=== PATIENT | female | born 1980 | race Caucasian/White ===

== ENCOUNTER 2017-08-31 11:30 | Emergency (ER) | payer OTHER ==
--- NOTE | 2017-08-31 14:53 | EKG ---
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
== END 2017-08-31 16:44 | disposition home or self-care (01) ==
LOC: ER 11:30
DX: S60.212A Contusion of left wrist, initial encounter (principal); V59.9XXA Occupant (driver) (passenger) of pick-up truck or van injured in unspecified traffic accident, initial encounter
CPT/HCPCS: 71046; 93005; 99284

== ENCOUNTER 2017-11-23 02:22 | Emergency (ER) | payer OTHER ==
[2017-11-23] MEDS ORDERED: LIDOCAINE VISCOUS 2% SOLN 15 ML UDC ONE (03:07)
[2017-11-23] MEDS ORDERED: MAGNE/ALUM HYDROXD 30 ML UCUP ONE (03:07)
[2017-11-23 03:17] LABS: Urine Blood NEGATIVE (NEG); Urine Glucose NEGATIVE (NEG); Urine Protein NEGATIVE (NEG); Urine Specific Gravity <1.005 (1.005-1.030)
[2017-11-23 03:18] LABS: Absolute Monocytes 0.7 K/uL (0.1-1.3); Absolute Neutrophil 5.7 K/uL (1.8-8.0); Basophils % 0.7 % (0-1.3); Eosinophils % 2.1 % (0-4.4); Hematocrit 42.8 % (36.0-45.0); Lymphocytes % 23.5 % (15.3-44.8); MCH 31.2 pg (27.0-35.0); MCV 89.4 fL (80-100); MPV 9.8 fL (7.6-11.3); Monocytes % 7.9 % (3.3-12.3); RBC Red Blood Cell Count 4.79 M/uL (3.86-4.86)
[2017-11-23 03:28] LABS: Protime INR 0.99
[2017-11-23 03:42] LABS: ALT/SGPT 37 U/L (12-78); AST/SGOT 23 U/L (15-37); Albumin 3.5 g/dL (3.4-5.0); Alkaline Phosphatase 60 U/L (45-117); BUN Blood Urea Nitrogen 11 mg/dL (7-18); Bicarbonate 24 mmol/L (21-32); Bilirubin Direct < 0.1 mg/dL (0-0.2); Bilirubin Total 0.3 mg/dL (0.2-1.0); CKMB Creatine Kinase MB < 1.0 ng/mL (0.3-3.6); Creatine Phosphokinase 84 U/L (26-192); Glucose Level 101 mg/dL (74-106); NT PRO-BNP 18 pg/mL (<125); Potassium 3.4 mmol/L (3.5-5.1); Protein, Total 7.2 g/dL (6.4-8.2); Sodium Level 142 mmol/L (136-145)
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
--- NOTE | 2017-11-23 03:55 | EDPHYS ---
Physician Documentation [facility] Name: Kavita Jeff Age: 37 yrs Sex: Female : 1980 Arrival Date: 11/23/2017 Time: 02:23 Bed 7 Private MD: Anatoliy Muniz H ED Physician Jamal Kingsley HPI: 11/23 03:49 This 37 yrs old Female presents to ER via Ambulatory with complaints of R Arm ps1 Pain, Heartburn, Abdominal Pain. 03:49 The patient or guardian reports chest pain that is located primarily in the not pain ps1 but discomfort with taking a deep breath, additionally feels like she has heartburn. Onset was early this morning. Did not eat dinner. No leg swelling. On control. No remitting or exacerbating factors. . 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 - Social history:: Smoking status: Patient/guardian denies using tobacco. - Ebola Screening: : No symptoms or risks identified at this time. ROS: 03:49 Constitutional: Negative for fever, chills, and weight loss, Eyes: Negative for injury, ps1 pain, redness, and discharge, Neck: Negative for injury, pain, and swelling, Cardiovascular: Negative for chest pain, palpitations, and edema, Back: Negative for injury and pain, MS/Extremity: Negative for injury and deformity, Skin: Negative for injury, rash, and discoloration, Neuro: Negative for headache, weakness, numbness, tingling, and seizure. 03:49 Respiratory: Positive for discomfort with deep inspiration. 03:49 Abdomen/GI: Positive for dyspepsia. Exam: 03:49 Constitutional: This is a well developed, well nourished patient who is awake, alert, ps1 and in no acute distress. Head/Face: Normocephalic, atraumatic. Eyes: Pupils equal round and reactive to light, extra-ocular motions intact. Lids and lashes normal. Conjunctiva and sclera are non-icteric and not injected. Chest/axilla: Normal chest wall appearance and motion. Nontender with no deformity. No lesions are appreciated. Cardiovascular: Regular rate and rhythm. No gallops, murmurs, or rubs. Normal PMI, no JVD. No pulse deficits. Respiratory: Lungs have equal breath sounds bilaterally, clear to auscultation and percussion. No rales, rhonchi or wheezes noted. No increased work of breathing, no retractions or nasal flaring. Abdomen/GI: Soft, non-tender, with normal bowel sounds. No distension or tympany. No guarding or rebound. No evidence of tenderness throughout. Skin: Warm, dry with normal turgor. Normal color with no rashes, no lesions, and no evidence of cellulitis. MS/ Extremity: Pulses equal, no cyanosis. Neurovascular intact. Full, normal range of motion. Neuro: Awake and alert, GCS 15, oriented to person, place, time, and situation. Cranial nerves II-XII grossly intact. Sensory grossly intact. Vital Signs: 02:51 BP 156 / 125; Pulse 91; Resp 18; Temp 98.6; Pulse Ox 100% on R/A; Weight 106.59 kg; mg2 Height 5 ft. 6 in. (167.64 cm); Pain 0/10; 03:30 BP 117 / 70; Pulse 90; Resp 18; Pulse Ox 98% on R/A; Pain 0/10; mg2 02:51 Body Mass Index 37.93 (106.59 kg, 167.64 cm) mg2 MDM: 03:11 Patient medically screened. ps1 03:49 HEART Score: History: Slightly Suspicious (0), ECG: Normal (0), Age: < or = 45 years ps1 (0), Risk Factors: No Risk Factors Known (0), Troponin: < or = 1 x Normal Limit (0). The patient's deep vein thrombosis risk score was calculated as follows: Total Score: 0. This patient was found to be at low risk for a deep vein thrombosis by using the Well's assessment criteria. The patient's pulmonary embolism risk score was calculated as follows: Total Score: 0-2 points. This patient was found to be at low risk for a pulmonary embolism by using the Well's assessment criteria. Data reviewed: vital signs, nurses notes, lab test result(s), EKG, radiologic studies, plain films, and as a result, I will discharge patient. 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 Special discussion: Based on the patient's history, exam, and Dx evaluation, there is no indication for emergent intervention or inpatient Tx. It is understood by the patient/guardian that if the Sx's persist or worsen they need to return immediately for re-evaluation. 11/23 02:56 Order name: CBC with Diff; Complete Time: 03:39 mg2 11/23 02:56 Order name: Ckmb; Complete Time: 03:43 mg2 11/23 02:56 Order name: CPK; Complete Time: 03:43 mg2 11/23 02:56 Order name: LFT's; Complete Time: 03:43 mg2 11/23 02:56 Order name: Magnesium; Complete Time: 03:43 mg2 11/23 02:56 Order name: NT PRO-BNP; Complete Time: 03:43 mg2 11/23 02:56 Order name: PT-INR; Complete Time: 03:39 mg2 11/23 02:56 Order name: Ptt, Activated; Complete Time: 03:39 mg2 11/23 02:56 Order name: Troponin (emerg Dept Use Only); Complete Time: 03:39 mg2 11/23 02:56 Order name: EKG; Complete Time: 02:57 mg2 11/23 02:56 Order name: Cardiac monitoring; Complete Time: 03:01 mg2 11/23 02:56 Order name: EKG - Nurse/Tech; Complete Time: 03:01 mg2 11/23 02:56 Order name: IV Saline Lock; Complete Time: 03:01 mg2 11/23 02:56 Order name: Labs collected and sent; Complete Time: 03:01 mg2 11/23 02:56 Order name: O2 Per Protocol; Complete Time: 03:01 mg2 11/23 02:56 Order name: O2 Sat Monitoring; Complete Time: 03:01 mg2 11/23 02:56 Order name: Urine Dipstick-Ancillary (obtain specimen); Complete Time: 03:55 mg2 11/23 02:57 Order name: XRAY Chest (1 view) [facility] 11/23 03:10 Order name: Comprehensive Metabolic Panel; Complete Time: 03:43 EDMS 11/23 03:12 Order name: Urine Dipstick--Ancillary (enter results); Complete Time: 03:25 ms 11/23 03:15 Order name: D-Dimer; Complete Time: 03:39 EDMS 11/23 02:57 Order name: Cardiac monitoring; Complete Time: 02:59 ps1 11/23 02:57 Order name: EKG - Nurse/Tech; Complete Time: 02:59 ps1 11/23 02:57 Order name: IV Saline Lock; Complete Time: 02:59 ps1 11/23 02:57 Order name: Labs collected and sent; Complete Time: 02:59 ps1 11/23 02:57 Order name: O2 Per Protocol; Complete Time: 02:59 ps1 11/23 02:57 Order name: O2 Sat Monitoring; Complete Time: 03:00 ps1 11/23 02:57 Order name: Urine Dipstick-Ancillary (obtain specimen); Complete Time: 03:55 ps1 Administered Medications: 03:08 Drug: GI Cocktail without - (Maalox Suspension 30 ml, Lidocaine Liquid 2 % 15 mg2 ml) Route: PO; 03:55 Follow up: Response: No adverse reaction mg2 04:21 Follow up: Response: No adverse reaction mg2 Disposition: 11/23/17 03:55 Discharged to Home. Impression: Heartburn, Other chest pain. - Condition is Stable. - Discharge Instructions: Nonspecific Chest Pain. - Medication Reconciliation Form, Thank You Letter, Antibiotic Education, Prescription Opioid Use form. - Follow up: Anatoliy Muniz DO; When: As needed; Reason: Recheck today's complaints, Continuance of care, Re-evaluation by your physician. Follow up: Emergency Department; When: As needed; Reason: Fever > 102 F, Trouble breathing, Worsening of condition. - Problem is new. - Symptoms have improved. Signatures: Dispatcher [employer] EDMS Jamal Kingsley MD MD ps1 Robert Mohan RN RN mg2 Corrections: (The following items were deleted from the chart) 03:00 02:57 Chest Single View+RAD.RAD.BRZ ordered. EDMS EDMS 03:09 02:58 MAGNESIUM+C.LAB.BRZ ordered. EDMS EDMS 03:09 02:58 COMPREHENSIVE METABOLIC PANEL+C.LAB.BRZ ordered. EDMS EDMS 03:10 02:57 BASIC METABOLIC PANEL+C.LAB.BRZ ordered. EDMS EDMS 03:15 02:58 D-DIMER+COAG.LAB.BRZ ordered. EDMS EDMS 04:21 03:55 11/23/2017 03:55 Discharged to Home. Impression: Heartburn; Other chest pain. mg2 Condition is Stable. Forms are Medication Reconciliation Form, Thank You Letter, Antibiotic Education, Prescription Opioid Use. Follow up: Anatoliy Muniz; When: As needed; Reason: Recheck today's complaints, Continuance of care, Re-evaluation by your physician. Follow up: Emergency Department; When: As needed; Reason: Fever > 102 F, Trouble breathing, Worsening of condition. Problem is new. Symptoms have improved. ps1
--- NOTE | 2017-11-23 06:31 | EKG ---
Test Date: 2017-11-23 Test Time: 02:54:15 Pot Builder: REGINA MEASUREMENT RESULTS: Intervals: Rate: 74 CT: 140 QRSD: 96 QT: 384 QTc: 426 White: P: 60 CT: 140 QRS: 86 T: 36 INTERPRETIVE STATEMENTS: Normal sinus rhythm with sinus arrhythmia Normal ECG Compared to ECG 08/31/2017 11:57:18 No significant changes Electronically Signed On 11-23-17 06:30:15 CDT by Bryce Valentin
--- NOTE | 2017-11-23 08:51 | RAD REPORT ---
EXAM DESCRIPTION: RAD - Chest Single View - 11/23/2017 3:16 am CLINICAL HISTORY: CHEST PAIN Chest pain. COMPARISON: Chest Pa And Lat (2 Views) dated 08/31/2017; Chest Single View dated 06/18/2017 FINDINGS: Portable technique limits examination quality. The lungs are grossly clear. The heart is normal in size. No displaced fractures. IMPRESSION: No acute intrathoracic process suspected.
== END 2017-11-23 04:21 | disposition home or self-care (01) ==
LOC: ER 02:22
DX: R12 Heartburn (principal); R07.89 Other chest pain
CPT/HCPCS: 36415; 71045; 80053; 80076; 81003; 82550; 82553; 83735; 83880; 84484; 85025; 85379; 85610; 85730; 93005; 99283

== ENCOUNTER 2024-07-14 14:08 | Emergency (ER) | payer BC ==
--- OUTSIDE RECORDS SUMMARY | 2024-07-14 14:12 | XMS REPORT | Continuity of Care Document ---
Author Name Unknown Address [address] [facility] [address] [place] [address] [facility] Address [address] [facility] [address] [place] [address] Care Team Providers Care Ear Nose Throat Surgeon Name Role Phone Pcp, Patient Does Not Have A Primary Care Physic ej Francisco J Bartlett Attending Clinician Unavailable Candice Echavarria Attending Clinician Unavailabl karen BEATTY_Kem_Tay Attending Clinician Unavailab Drew Horta Attending Clinician Unavailable Kris Shields Attending Clinician Unavailable Valerie RN, Kalli Hanna Attending Clinician Unavailab Mcgrath, Ang Db Test Attending Clinician Unavailying e Julita Young Attending Clinician JULITA DEMPSEY Attending Clinician Unavailabl e Doctor Unassigned, [place] Attending Clinician U eris Wade, Shabnam Attending Clinician Unavailable Candice Echavarria Admitting Clinician Unavailying BEATTY_Kem_Tay Admitting Clinician Unavailab le KNOW, DOES_NOT Admitting Clinician Unavailable Drew Wade Admitting Clinician Unavailable FRANCISCO J BARTLETT Admitting Clinician Unavailable Physician, No Primary or Family Admitting Clinic ej Unavailable Payers Payer Name Policy Type Policy Number Effective Date Expirati on Date Source Blue Cross [place] of [place] 6 [id number] 2022 00:00:00 [facility] [place] [id number] 2022 00:00:00 Problems Condition Name Condition Details Condition Category Status Onset Date Resolution Date Last Treatment Date Treating Clinician Comments Source 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 Active 09-02 00:00: 00 [facility] S/P gastric sleeve procedure S/P gastric sleeve procedure Problem [facility] [id number] Thyroid nodule Problem [facility] [id number] 06 Reactive airway disease without complicati on, unspecifie d asthma severity, unspecifie d whether persistent Problem [facility] [id number] Allergic rhinitis, unspecifie d seasonalit y, unspecifie d trigger Problem [facility] [id number] MTHFR gene mutation Problem [facility] [id number] Eczema, unspecifie d type Problem [facility] [id number] Mixed hyperlipid emia Problem [facility] [id number] Body mass index [BMI] 38.0-38.9, adult Problem [facility] 3654954 Enlarged thyroid Problem [facility] [id number] Iron deficiency anemia, unspecifie d iron deficiency anemia type Problem [facility] [id number] Environmen kia allergies Problem [facility] 534291759 Lung nodule, solitary Problem [facility] [id number] Other obesity due to excess calories Problem [facility] 454738254 Gastro-eso phageal reflux disease without esophagiti s Problem [facility] 59953083 Vitamin D deficiency disease Problem [facility] Allergies, Adverse Reactions, Alerts Allergy Name Allergy Type Status Severity Reaction(s) Onset Date Inactive Date Treating Clinician Comments Source No Known Drug Intolera nces DA Active U NONE 2023-05 00:00: 00 [facility] No Known Allergie s DA Active U 05-29 00:00: 00 [facility] No Known Drug Intolera nces DA Active U NONE 01-07 00:00: 00 [facility] No Known Drug Intolera nces DA Active U 01-07 00:00: 00 [facility] NO KNOWN ALLERGIE S Drug Class Active [facility] Social History Social Habit Start Date Stop Date Quantity Comments Source History of Tobacco Use [facility] Sex Assigned At [facility] Exposure to SARS-CoV-2 (event) Yes [facility] Smoking Status Start Date Stop Date Source Never Smoker [facility] Unknown if ever smoked [facility] Medications Ordered Medication Name Filled Medication Name Start Date Stop Date Current Medication? Ordering Clinician Indication Dosage Frequency Signature (SIG) Comments Components Source Zepbound 2.5 MG/0.5ML Zepbound 2.5 MG/0.5ML 2- 00:00: 00 No .5{ml} Zepbound 2.5 MG/0.5ML Kenalog (Triamcinol one) Kenalog (Triamcinol one) 5- 00:00: 00 No 40mg [facility] Triamcinolo ne Acetonide 0.5 % Triamcinolo ne Acetonide 0.5 % 2020-05 0-12 00:00: 00 No 1{appli cation} BID Triamcinol one Acetonide 0.5 % Altavera (28) 0.15 mg-0.03 mg tablet TAKE ONE (1) TABLET(S) BY MOUTH ONCE A DAY CONTIUOUSLY AND SKIP PLACEBOS. Altavera (28) 0.15 mg-0.03 mg tablet TAKE ONE (1) TABLET(S) BY MOUTH ONCE A DAY CONTIUOUSLY AND SKIP PLACEBOS. No Altavera (28) 0.15 mg-0.03 mg tablet TAKE ONE (1) TABLET(S) BY MOUTH ONCE A DAY CONTIUOUSL Y AND SKIP PLACEBOS. [facility] amoxicillin 500 mg capsule TAKE ONE (1) CAPSULE(S) BY MOUTH THREE TIMES A DAY. amoxicillin 500 mg capsule TAKE ONE (1) CAPSULE(S) BY MOUTH THREE TIMES A DAY. No amoxicilli n 500 mg capsule TAKE ONE (1) CAPSULE(S) BY MOUTH THREE TIMES A DAY. [facility] amoxicillin 875 mg tablet TAKE ONE (1) TABLET(S) BY MOUTH EVERY TWELVE HOURS. amoxicillin 875 mg tablet TAKE ONE (1) TABLET(S) BY MOUTH EVERY TWELVE HOURS. No amoxicilli n 875 mg tablet TAKE ONE (1) TABLET(S) BY MOUTH EVERY TWELVE HOURS. [facility] amoxicillin 875 mg-potassiu m clavulanate 125 mg tablet TAKE ONE (1) TABLET(S) BY MOUTH TWICE A DAY. amoxicillin 875 mg-potassiu m clavulanate 125 mg tablet TAKE ONE (1) TABLET(S) BY MOUTH TWICE A DAY. No amoxicilli n 875 mg-potassi um clavulanat e 125 mg tablet TAKE ONE (1) TABLET(S) BY MOUTH TWICE A DAY. [facility] azelaic acid 15 % topical gel APPLY TO AFFECTED AREA TWICE A DAY. azelaic acid 15 % topical gel APPLY TO AFFECTED AREA TWICE A DAY. No azelaic acid 15 % topical gel APPLY TO AFFECTED AREA TWICE A DAY. [facility] azithromyci n 250 mg tablet TAKE 2 TABLETS BY MOUTH ON DAY 1, THEN 1 TABLET DAILY ON DAYS 2 TO 5. azithromyci n 250 mg tablet TAKE 2 TABLETS BY MOUTH ON DAY 1, THEN 1 TABLET DAILY ON DAYS 2 TO 5. No azithromyc in 250 mg tablet TAKE 2 TABLETS BY MOUTH ON DAY 1, THEN 1 TABLET DAILY ON DAYS 2 TO 5. [facility] dexamethaso ne 4 mg tablet TAKE TWO (2) TABLET(S) BY MOUTH ONCE ON DAYS 1 AND 2, THEN TAKE ONE (1) TABLET ONCE ON DAY 3. dexamethaso ne 4 mg tablet TAKE TWO (2) TABLET(S) BY MOUTH ONCE ON DAYS 1 AND 2, THEN TAKE ONE (1) TABLET ONCE ON DAY 3. No dexamethas one 4 mg tablet TAKE TWO (2) TABLET(S) BY MOUTH ONCE ON DAYS 1 AND 2, THEN TAKE ONE (1) TABLET ONCE ON DAY 3. [facility] fluconazole 150 mg tablet TAKE ONE (1) TABLET(S) BY MOUTH EVERY OTHER DAY. fluconazole 150 mg tablet TAKE ONE (1) TABLET(S) BY MOUTH EVERY OTHER DAY. No fluconazol e 150 mg tablet TAKE ONE (1) TABLET(S) BY MOUTH EVERY OTHER DAY. [facility] hydrocodone 7.5 mg-acetamin ophen 325 mg tablet TAKE ONE (1) TABLET(S) BY MOUTH FOUR TIMES A DAY NEEDED. hydrocodone 7.5 mg-acetamin ophen 325 mg tablet TAKE ONE (1) TABLET(S) BY MOUTH FOUR TIMES A DAY NEEDED. No hydrocodon e 7.5 mg-acetami nophen 325 mg tablet TAKE ONE (1) TABLET(S) BY MOUTH FOUR TIMES A DAY NEEDED. [facility] ibuprofen 800 mg tablet TAKE ONE (1) TABLET(S) BY MOUTH EVERY SIX HOURS WITH FOOD. ibuprofen 800 mg tablet TAKE ONE (1) TABLET(S) BY MOUTH EVERY SIX HOURS WITH FOOD. No ibuprofen 800 mg tablet TAKE ONE (1) TABLET(S) BY MOUTH EVERY SIX HOURS WITH FOOD. [facility] methylpredn isolone 4 mg tablets in a dose pack TAKE BY MOUTH DIRECTED. methylpredn isolone 4 mg tablets in a dose pack TAKE BY MOUTH DIRECTED. No methylpred nisolone 4 mg tablets in a dose pack TAKE BY MOUTH DIRECTED. [facility] rabeprazole 20 mg tablet,alok yed release TAKE ONE (1) TABLET(S) BY MOUTH ONCE A DAY. rabeprazole 20 mg tablet,alok yed release TAKE ONE (1) TABLET(S) BY MOUTH ONCE A DAY. No rabeprazol e 20 mg tablet,del ayed release TAKE ONE (1) TABLET(S) BY MOUTH ONCE A DAY. [facility] spironolact one 100 mg tablet TAKE ONE (1) TABLET(S) BY MOUTH DAILY. spironolact one 100 mg tablet TAKE ONE (1) TABLET(S) BY MOUTH DAILY. No spironolac tone 100 mg tablet TAKE ONE (1) TABLET(S) BY MOUTH DAILY. [facility] triamcinolo ne acetonide 0.5 % topical ointment APPLY TO AFFECTED AREA TWICE A DAY. triamcinolo ne acetonide 0.5 % topical ointment APPLY TO AFFECTED AREA TWICE A DAY. No triamcinol one acetonide 0.5 % topical ointment APPLY TO AFFECTED AREA TWICE A DAY. [facility] triazolam 0.25 mg tablet BRING TWO TABLETS TO DENTAL APPOINTMENT . triazolam 0.25 mg tablet BRING TWO TABLETS TO DENTAL APPOINTMENT . No triazolam 0.25 mg tablet BRING TWO TABLETS TO DENTAL APPOINTMEN T. [facility] Flonase Flonase No Flonase ZyrTEC Allergy 10 MG ZyrTEC Allergy 10 MG No 1{table t} QD ZyrTEC Allergy 10 MG RABEprazole Sodium 20 MG RABEprazole Sodium 20 MG No 1{table t} QD RABEprazol e Sodium 20 MG Soolantra 1 % Soolantra 1 % No 1{appli cation} QD Soolantra 1 % Immunizations Ordered Immunization Name Filled Immunization Name Date Status Comments Source Flucelvax (ccIIV4) - SDS - 0.5mL Flucelvax (ccIIV4) - SDS - 0.5mL 2022-06-09 11:23:00 [facility] Flucelvax - single dose syringe Flucelvax - single dose syringe 2022-06-09 11:23:00 [facility] Flucelvax (ccIIV4) - MDV - 0.5mL Flucelvax (ccIIV4) - MDV - 0.5mL 2021-06-05 11:10:00 [facility] Flucelvax - multidose vial Flucelvax - multidose vial 2021-06-05 11:10:00 Completed [facility] Flucelvax - multidose vial Flucelvax - multidose vial 2021-06-05 11:10:00 Completed [facility] Flucelvax - multidose vial Flucelvax - multidose vial 2021-06-05 11:10:00 Completed [facility] Boostrix (Tdap) Boostrix (Tdap) 2021-06-05 11:09:00 Completed [facility] Boostrix (Tdap) Boostrix (Tdap) 2021-06-05 11:09:00 Completed [facility] Boostrix (Tdap) Boostrix (Tdap) 2021-06-05 11:09:00 Completed [facility] Boostrix (Tdap) Boostrix (Tdap) 2021-06-05 11:09:00 Completed [facility] SARS-COV-2 COVID-19 PORSCHE/J&J VACCINE 2020-07-24 00:00:00 Completed [facility] SARS-COV-2 COVID-19 PORSCHE/J&J VACCINE 2020-07-24 00:00:00 Completed [facility] SARS-COV-2 COVID-19 PORSCHE/J&J VACCINE 2020-07-24 00:00:00 Completed [facility] SARS-COV-2 COVID-19 PORSCHE/J&J VACCINE 2020-07-24 00:00:00 Completed [facility] Fluarix (IIV4) - SDS - 0.5mL Fluarix (IIV4) - SDS - 0.5mL 2020-03-03 11:36:00 Completed [facility] Afluria single dose Afluria single dose 2020-03-03 11:36:00 Completed [facility] Afluria single dose Afluria single dose 2020-03-03 11:36:00 Completed [facility] Afluria single dose Afluria single dose 2020-03-03 11:36:00 Completed [facility] Afluria single dose Afluria single dose 2019-02-22 11:04:00 Completed [facility] Afluria single dose Afluria single dose 2019-02-22 11:04:00 Completed [facility] Afluria single dose Afluria single dose 2019-02-22 11:04:00 Completed [facility] Afluria single dose Afluria single dose 2019-02-22 11:04:00 Completed [facility] Afluria single dose Afluria single dose Unknown Completed [facility] Flucelvax - multidose vial Flucelvax - multidose vial Unknown Completed [facility] Flucelvax - single dose syringe Flucelvax - single dose syringe Unknown Completed [facility] Boostrix (Tdap) Boostrix (Tdap) Unknown Completed [facility] Afluria single dose Afluria single dose Unknown Completed [facility] Flucelvax - multidose vial Flucelvax - multidose vial Unknown Completed [facility] Flucelvax - single dose syringe Flucelvax - single dose syringe Unknown Completed [facility] Boostrix (Tdap) Boostrix (Tdap) Unknown Completed [facility] Afluria (IIV4) - 3 years and older - SDS - 0.5mL Afluria (IIV4) - 3 years and older - SDS - 0.5mL Unknown Completed [facility] Flucelvax (ccIIV4) - MDV - 0.5mL Flucelvax (ccIIV4) - MDV - 0.5mL Unknown Completed [facility] Flucelvax (ccIIV4) - SDS - 0.5mL Flucelvax (ccIIV4) - SDS - 0.5mL Unknown Completed [facility] Boostrix (Tdap) Boostrix (Tdap) Unknown Completed [facility] Afluria (IIV4) - 3 years and older - SDS - 0.5mL Afluria (IIV4) - 3 years and older - SDS - 0.5mL Unknown Completed [facility] Flucelvax (ccIIV4) - MDV - 0.5mL Flucelvax (ccIIV4) - MDV - 0.5mL Unknown Completed [facility] Flucelvax (ccIIV4) - SDS - 0.5mL Flucelvax (ccIIV4) - SDS - 0.5mL Unknown Completed [facility] Boostrix (Tdap) Boostrix (Tdap) Unknown Completed [facility] Afluria (IIV4) - 3 years and older - SDS - 0.5mL Afluria (IIV4) - 3 years and older - SDS - 0.5mL Unknown Completed [facility] Flucelvax (ccIIV4) - MDV - 0.5mL Flucelvax (ccIIV4) - MDV - 0.5mL Unknown Completed [facility] Flucelvax (ccIIV4) - SDS - 0.5mL Flucelvax (ccIIV4) - SDS - 0.5mL Unknown Completed [facility] Boostrix (Tdap) Boostrix (Tdap) Unknown Completed [facility] Afluria (IIV4) - 3 years and older - SDS - 0.5mL Afluria (IIV4) - 3 years and older - SDS - 0.5mL Unknown Completed [facility] Flucelvax (ccIIV4) - MDV - 0.5mL Flucelvax (ccIIV4) - MDV - 0.5mL Unknown Completed [facility] Flucelvax (ccIIV4) - SDS - 0.5mL Flucelvax (ccIIV4) - SDS - 0.5mL Unknown Completed [facility] Boostrix (Tdap) Boostrix (Tdap) Unknown Completed [facility] Vital Signs Vital Name Observation Time Observation Value Comments S ource height 2024-06-27 10:30:00 65.5 [in_i] Comm on [facility] weight 2024-06-27 10:30:00 165.4 [lb_av] Co mmon [facility] temperature 2024-06-27 10:30:00 98 [degF] Comm on [facility] bmi 2024-06-27 10:30:00 27.1 kg/m2 Commo n [facility] oximetry 2024-06-27 10:30:00 99 % Commo n [facility] heart rate 2024-06-27 10:30:00 81 /min Commo n [facility] respiratory rate 2024-06-27 10:30:00 17 /min [facility] blood pressure systolic 2024-06-27 10:30:00 110 mm[Hg] Common [facility] blood pressure diastolic 2024-06-27 10:30:00 72 mm[Hg] Common [facility] height 2024-05-01 15:00:00 65.5 [in_i] Comm on [facility] weight 2024-05-01 15:00:00 168.6 [lb_av] Co mmon [facility] temperature 2024-05-01 15:00:00 97.3 [degF] Com mon [facility] bmi 2024-05-01 15:00:00 27.63 kg/m2 Comm on [facility] oximetry 2024-05-01 15:00:00 99 % Commo n [facility] respiratory rate 2024-05-01 15:00:00 16 /min [facility] blood pressure systolic 2024-05-01 15:00:00 112 mm[Hg] Common [facility] blood pressure diastolic 2024-05-01 15:00:00 80 mm[Hg] [facility] height 2023-06-10 08:30:00 65.5 [in_i] Comm on [facility] weight 2023-06-10 08:30:00 144.6 [lb_av] Co mmon [facility] temperature 2023-06-10 08:30:00 97.5 [degF] Com [facility] bmi 2023-06-10 08:30:00 23.69 kg/m2 Comm on [facility] oximetry 2023-06-10 08:30:00 96 % Commo n [facility] blood pressure systolic 2023-06-10 08:30:00 110 mm[Hg] [facility] blood pressure diastolic 2023-06-10 08:30:00 70 mm[Hg] Common [facility] height 2022-12-07 08:20:00 65.5 [in_i] Comm on [facility] weight 2022-12-07 08:20:00 153.3 [lb_av] Co [facility] temperature 2022-12-07 08:20:00 97.7 [degF] Com [facility] bmi 2022-12-07 08:20:00 25.12 kg/m2 Comm on [facility] oximetry 2022-12-07 08:20:00 99 % Commo n [facility] respiratory rate 2022-12-07 08:20:00 16 /min [facility] blood pressure systolic 2022-12-07 08:20:00 115 mm[Hg] Common [facility] blood pressure diastolic 2022-12-07 08:20:00 62 mm[Hg] Common [facility] height 2022-06-09 11:00:00 65.5 [in_i] Comm on [facility] weight 2022-06-09 11:00:00 146.4 [lb_av] Co mmon [facility] temperature 2022-06-09 11:00:00 97.2 [degF] Com [facility] bmi 2022-06-09 11:00:00 23.99 kg/m2 Comm on [facility] oximetry 2022-06-09 11:00:00 99 % Commo n [facility] respiratory rate 2022-06-09 11:00:00 18 /min [facility] blood pressure systolic 2022-06-09 11:00:00 118 mm[Hg] Common [facility] blood pressure diastolic 2022-06-09 11:00:00 69 mm[Hg] [facility] height 2022-01-05 11:40:00 65.5 [in_i] Comm on [facility] weight 2022-01-05 11:40:00 166 [lb_av] Comm on [facility] temperature 2022-01-05 11:40:00 97.9 [degF] Com [facility] bmi 2022-01-05 11:40:00 27.2 kg/m2 Commo n [facility] oximetry 2022-01-05 11:40:00 98 % Commo n [facility] respiratory rate 2022-01-05 11:40:00 16 /min [facility] blood pressure systolic 2022-01-05 11:40:00 122 mm[Hg] [facility] blood pressure diastolic 2022-01-05 11:40:00 72 mm[Hg] [facility] height 2021-09-15 10:00:00 66 [in_i] Commo n [facility] weight 2021-09-15 10:00:00 191.4 [lb_av] Co mmon [facility] temperature 2021-09-15 10:00:00 98.1 [degF] Com [facility] bmi 2021-09-15 10:00:00 30.89 kg/m2 Comm on [facility] oximetry 2021-09-15 10:00:00 100 % Commo n [facility] respiratory rate 2021-09-15 10:00:00 18 /min [facility] blood pressure systolic 2021-09-15 10:00:00 121 mm[Hg] [facility] blood pressure diastolic 2021-09-15 10:00:00 71 mm[Hg] Common [facility] height 2021-06-05 10:30:00 66 [in_i] Commo n [facility] weight 2021-06-05 10:30:00 224.8 [lb_av] Co mmon [facility] temperature 2021-06-05 10:30:00 97.9 [degF] Com mon [facility] bmi 2021-06-05 10:30:00 36.28 kg/m2 Comm on [facility] oximetry 2021-06-05 10:30:00 100 % Commo n [facility] respiratory rate 2021-06-05 10:30:00 18 /min [facility] blood pressure systolic 2021-06-05 10:30:00 132 mm[Hg] Common [facility] blood pressure diastolic 2021-06-05 10:30:00 83 mm[Hg] Common [facility] height 2021-02-24 08:00:[address] [facility] weight 2021-02-24 08:00:00 207 [lb_av] Comm on [facility] temperature 2021-02-24 08:00:00 97.5 [degF] Com [facility] bmi 2021-02-24 08:00:00 33.41 kg/m2 Comm on [facility] Procedures Procedure Date / Time Performed Performing Clinician Source [id number] 2024-03-20 00:00:00 PATRICK KIM [facility] RADEX SACRUM&COCCYX MINIMUM 2 VIEWS 2022-09-02 00:00:00 [facility] [id number] 2021-07-02 00:00:00 MARRO.02 [facility] [id number] 2021-07-02 00:00:00 MARRO.02 [facility] [id number] 2021-07-02 00:00:00 MARRO.02 [facility] [id number] 2021-07-02 00:00:00 MARRO.02 [facility] ASSIGNMENT OF BENEFITS 2021-02-10 01:46:17 Docto r Unassigned, [place] [facility] Encounters Start Date/Time End Date/Time Encounter Type Admission Type Attending Clinicians Care Facility Care Department Encounter ID Source 2024-04-18 09:37:00 Outpatient Bartlett, Pending Sale To [facility] STLC [id number] [facility] 2024-03-16 13:00:00 Inpatient Candice Em [facility] OBOP [id number] [address] [facility] 2021-07-20 10:04:03 Outpatient Bartlett, Pending Sale To [facility] ST[facility] STLC [id number] [facility] 2021-06-10 14:01:41 Outpatient Bartlett, Francisco J [facility] STLC [id number] [facility] 2021-06-10 13:58:46 Outpatient Bartlett, Francisco J ST[facility] STLMLC [id number] [facility] 2021-06-10 13:55:58 Outpatient Bartlett, Francisco J STLC STLMLC [id number] [facility] 2021-06-10 12:58:59 Outpatient Bartlett, Francisco J STLC STLMLC [id number] [facility] 2021-06-10 12:52:26 Outpatient Bartlett, Francisco J ST[facility] STLMLC [id number] [facility] 2021-06-10 12:47:02 Outpatient Bartlett, Francisco J ST[facility] STLMLC [id number] [facility] 2021-06-10 12:28:14 Outpatient Bartlett, Francisco J ST[facility] STLMLC [id number] [facility] 2021-06-10 12:00:48 Outpatient Bartlett, Francisco J [facility] STLMLC [id number] [facility] 2021-06-10 11:57:18 Outpatient Bartlett, Francisco J [facility] STLC [id number] [facility] 2021-06-10 11:56:24 Outpatient Bartlett, Francisco J STLC STLMLC [id number] [facility] 2024-07-03 00:00:00 2024-07-03 00:00:00 (TEL) STLMLC STLMLC [id number] [facility] 2024-07-02 00:00:00 2024-07-02 00:00:00 (TEL) STLMLC STLMLC [id number] [facility] 2024-06-27 00:00:00 2024-06-27 00:00:00 (WELLNESS) Wellness Visit STLMLC STLMLC [id number] [facility] 2024-06-27 00:00:00 2024-06-27 00:00:00 (TEL) STLMLC STLMLC [id number] [facility] 2024-05-28 00:00:00 2024-05-28 00:00:00 (TEL) STLMLC STLMLC [id number] [facility] 2024-05-28 00:00:00 2024-05-28 00:00:00 (TEL) STLMLC STLMLC [id number] [facility] 2024-05-03 00:00:00 2024-05-03 00:00:00 (TEL) STLMLC STLMLC [id number] [facility] 2024-05-01 00:00:00 2024-05-01 00:00:00 OFFICE VISIT ESTAB PT LEVEL 4 STLMLC STLMLC [id number] [facility] 2024-04-17 00:00:00 2024-04-17 00:00:00 (TEL) STLMLC STLMLC [id number] [facility] 2024-03-20 07:52:00 2024-03-23 15:41:00 Inpatient Candice Em [facility] OBPP [id number] [address] [facility] 2024-03-14 12:38:00 2024-03-15 00:00:00 Outpatient Candice Em [facility] OBOP [id number] [facility] 2023-10-04 08:00:00 2023-10-04 08:00:00 Outpatient Candice Em [facility] DONAVAN [id number] [facility] 2023-10-03 00:00:00 2023-10-03 00:00:00 (WEB) STLMLC STLMLC [id number] [facility] 2023-06-10 00:00:00 2023-06-10 00:00:00 PREV VISIT EST AGE 40-64 STLMLC STLMLC [id number] [facility] 2023-06-03 00:00:00 2023-06-03 00:00:00 (TEL) STLMLC STLMLC [id number] [facility] 2023-01-03 00:00:00 2023-01-03 00:00:00 (TEL) STLMLC STLMLC [id number] [facility] 2022-12-07 00:00:00 2022-12-07 00:00:00 OFFICE VISIT ESTAB PT LEVEL 3 STLMLC STLMLC [id number] [facility] 2022-11-24 00:00:00 2022-11-24 00:00:00 (TEL) STLMLC STLMLC [id number] [facility] 2022-09-17 00:00:00 2022-09-17 00:00:00 Outpatient JACI_Taba_Ho Hubert AO AO [id number] [facility] 2022-09-02 00:00:00 2022-09-02 00:00:00 Outpatient FOG_Taba_Ho Hubert AOSM AOSM [id number] [facility] 2022-09-02 00:00:00 2022-09-02 00:00:00 Jake Dejesus MD: [id number] [place] [address] , Ph. [phone] [facility] [place] [facility] - FOG_Ofc [facility] [id number] [facility] 2022-09-01 00:00:00 2022-09-01 00:00:00 Outpatient FOG_Taba_Ho Hubert AOSM AOSM [id number] [facility] 2022-08-31 00:00:00 2022-08-31 00:00:00 Outpatient FOG_Taba_Bebo Gaspar AOSM AO [id number] [facility] 2022-08-11 00:00:00 2022-08-11 00:00:00 Outpatient FOG_Taba_Ho Hubert AOSM AOSM [id number] [facility] 2022-06-09 00:00:00 2022-06-09 00:00:00 PREV VISIT EST AGE 40-64 STLMLC STLMLC [id number] [facility] 2022-01-05 00:00:00 2022-01-05 00:00:00 OFFICE VISIT EST PT LEVEL 3 STLMLC STLMLC [id number] [facility] 2021-12-15 00:00:00 2021-12-15 00:00:00 (TEL) STLMLC STLMLC [id number] [facility] 2021-11-05 07:20:00 2021-11-05 07:20:00 Outpatient Drew Vallecillo [facility] RAD [id number] [facility] 2021-10-27 10:57:00 2021-10-27 13:18:00 Emergency Kris Medina [facility] OSCAR [id number] [facility] 2021-10-27 10:57:00 2021-10-27 13:18:00 Emergency Kris Medina [facility] [id number] [facility] 2021-09-15 00:00:00 2021-09-15 00:00:00 OFFICE VISIT EST PT LEVEL 3 STLMLC STLMLC [id number] [facility] 2021-09-14 00:00:00 2021-09-14 00:00:00 (TEL) STLMLC STLMLC [id number] [facility] 2021-09-11 00:00:00 2021-09-11 00:00:00 (TEL) STLMLC STLMLC [id number] [facility] 2021-07-02 08:05:00 2021-07-03 09:48:00 Inpatient Drew Vallecillo [facility] MEDI.01 [id number] [facility] 2021-06-10 00:00:00 2021-06-10 00:00:00 (TEL) STLMLC STLMLC [id number] [facility] 2021-06-05 00:00:00 2021-06-05 00:00:00 PREV VISIT EST AGE 40-64 STLMLC STLMLC [id number] [facility] 2021-06-01 00:37:00 2021-06-01 00:37:00 Outpatient Drwe Vallecillo [facility] ENDO [id number] [facility] 2021-02-24 00:00:00 2021-02-24 00:00:00 OFFICE VISIT ESTAB PT LEVEL 4 STLMLC STLMLC [id number] [facility] 2021-02-14 00:00:00 2021-02-14 00:00:00 Letter (Out) Kalli Padilla [facility] 1.2.840.114 350.1.13.10 4.2.7.2.686 [id number] [facility] 2021-02-13 14:02:21 2021-02-13 14:17:21 Laboratory Only Only, Ang Db Test [facility] Office [facility] 1.2.840.114 350.1.13.10 4.2.7.2.686 [id number] [facility] 2021-02-13 14:15:00 2021-02-13 14:15:00 [facility] [id number] [facility] 2021-02-09 20:48:44 2021-02-09 21:03:44 Laboratory Only Only, Ang Db Test [facility] 1.2.840.114 350.1.13.10 4.2.7.2.686 [id number] [facility] 2021-02-09 20:40:00 2021-02-09 20:40:00 Outpatient R JULITA DEMP[facility]Y [facility] [id number] [facility] 2021-02-09 00:00:00 2021-02-09 00:00:00 Orders Only Doctor Unassigned, [place] [facility] 1.2.840.114 350.1.13.10 4.2.7.2.686 [id number] [facility] 2020-11-04 00:00:00 2020-11-04 00:00:00 Outpatient STLMLC STLMLC [id number] [facility] 2020-10-20 00:00:00 2020-10-20 00:00:00 Outpatient STLMLC STLMLC [id number] [facility] 2020-09-15 00:00:00 2020-09-15 00:00:00 Outpatient STLMLC STLMLC [id number] [facility] 2020-08-28 00:00:00 2020-08-28 00:00:00 Outpatient STLMLC STLMLC [id number] [facility] 2020-08-27 00:00:00 2020-08-27 00:00:00 Outpatient STLMLC STLMLC [id number] [facility] 2020-08-20 05:04:54 2020-08-20 05:04:54 Outpatient Shabnam Mckeon [facility] [id number] [facility] 2020-07-17 00:00:00 2020-07-17 00:00:00 Outpatient STLMLC STLMLC [id number] [facility] 2020-06-20 00:00:00 2020-06-20 00:00:00 Outpatient STLMLC STLMLC [id number] [facility] 2020-03-17 00:00:00 2020-03-17 00:00:00 Outpatient STLMLC STLMLC [id number] [facility] 2020-03-03 00:00:00 2020-03-03 00:00:00 Outpatient STLMLC STLMLC [id number] [facility] 2019-11-14 12:00:00 2019-11-14 12:00:00 Outpatient Shabnam Mckeon [facility] [id number] [facility] 2019-04-20 12:00:00 2019-04-20 12:00:00 Outpatient Shabnam Mckeon [facility] [id number] [facility] Results Test Description Test Time Test Comments Results Result Co mments Source COMPREHENSIVE METABOLIC [id number] 00:00:00* Test Item Value Reference Range Interpretation Comme nts NUCLEATED RBCS (test code = 01956-8) 0.0 /100 WBC'S See_Comment [Automated message] The system which generated this result transmitted reference range: 0.0 /100 WBC'S. The reference range was not used to interpret this result as normal/abnormal. ABSOLUTE EOSINOPHILS (test code = 80565-8) 0.26 K/UL See_Comment [Automated message] The system which generated this result transmitted reference range: 0.00-0.50 K/UL. The reference range was not used to interpret this result as normal/abnormal. ABSOLUTE LYMPHOCYTES (test code = 65293-0) 1.70 K/UL See_Comment [Automated message] The system which generated this result transmitted reference range: 1.00-4.00 K/UL. The reference range was not used to interpret this result as normal/abnormal. ABSOLUTE MONOCYTES (test code = 74426-8) 0.64 K/UL See_Comment [Automated message] The system which generated this result transmitted reference range: 0.20-1.00 K/UL. The reference range was not used to interpret this result as normal/abnormal. ABSOLUTE NEUTROPHILS (test code = 24822-4) 3.60 K/UL See_Comment [Automated message] The system which generated this result transmitted reference range: 1.50-7.50 K/UL. The reference range was not used to interpret this result as normal/abnormal. BASOPHILS (test code = 63943-0) 0.6 % EOSINOPHILS (test code = 84581-6) 4.2 % HEMATOCRIT (test code = 35498-5) 35.6 % See_Comment [Automated message] The system which generated this result transmitted reference range: 34.0-45.0 %. The reference range was not used to interpret this result as normal/abnormal. HEMOGLOBIN (test code = 718-7) 10.7 G/DL See_Comment L [Automated message] The system which generated this result transmitted reference range: 11.5-15.5 G/DL. The reference range was not used to interpret this result as normal/abnormal. LYMPHOCYTES (test code = 65320-6) 27.2 % MCH (test code = 14242-5) 25.2 PG See_Comment [Automated message] The system which generated this result transmitted reference range: 25.0-33.0 PG. The reference range was not used to interpret this result as normal/abnormal. MCHC (test code = 24052-5) 30.1 G/DL See_Comment L [Automated message] The system which generated this result transmitted reference range: 31.0-36.0 G/DL. The reference range was not used to interpret this result as normal/abnormal. MCV (test code = 70966-0) 83.8 fL See_Comment [Automated message] The system which generated this result transmitted reference range: 80.0-99.0 fL. The reference range was not used to interpret this result as normal/abnormal. MONOCYTES (test code = 70327-5) 10.2 % NEUTROPHILS (test code = 25149-4) 57.5 % PLATELET COUNT (test code = 12949-2) 291 K/UL See_Comment [Automated message] The system which generated this result transmitted reference range: 130-400 K/UL. The reference range was not used to interpret this result as normal/abnormal. RBC (test code = 05400-8) 4.25 M/UL See_Comment [Automated message] The system which generated this result transmitted reference range: 3.80-5.40 M/UL. The reference range was not used to interpret this result as normal/abnormal. RDW (test code = 64937-3) 16.0 % See_Comment H [Automated message] The system which generated this result transmitted reference range: 11.5-15.0 %. The reference range was not used to interpret this result as normal/abnormal. WBC (test code = 77462-1) 6.3 K/UL See_Comment [Automated message] The system which generated this result transmitted reference range: 3.5-11.0 K/UL. The reference range was not used to interpret this result as normal/abnormal. HEMOGLOBIN A1c (test code = 4548-4) 4.8 % See_Comment [Automated message] The system which generated this result transmitted reference range: 4.2-5.6 %. The reference range was not used to interpret this result as normal/abnormal. TSH REFLEX TO FREE T4 (test code = 03936-2) 1.560 UIU/ML See_Comment [Automated message] The system which generated this result transmitted reference range: 0.400-4.100 UIU/ML. The reference range was not used to interpret this result as normal/abnormal. APPEARANCE (test code = 5767-9) CLEAR CLEAR BILIRUBIN (test code = 5770-3) NEGATIVE NEGATIVE COLOR (test code = 5778-6) YELLOW YELLOW-STRAW GLUCOSE (test code = 5792-7) NEGATIVE NEGATIVE KETONES (test code = 5797-6) NEGATIVE NEGATIVE LEUKOCYTE ESTERASE (test code = 5799-2) NEGATIVE NEGATIVE NITRITE (test code = 5802-4) NEGATIVE NEGATIVE OCCULT BLOOD (test code = 37506-0) NEGATIVE NEGATIVE pH (test code = 5803-2) 7.5 5.0-9.0 PROTEIN (test code = 37149-2) NEGATIVE NEGATIVE SPECIFIC GRAVITY (test code = 5811-5) 1.008 1.005-1.035 UROBILINOGEN (test code = 89098-9) 0.2 MG/DL See_Comment [Automated message] The system which generated this result transmitted reference range: <=2.0 MG/DL. The reference range was not used to interpret this result as normal/abnormal. CALC LDL CHOL (test code = 03386-5) 115 MG/DL See_Comment H [Automated message] The system which generated this result transmitted reference range: <100 MG/DL. The reference range was not used to interpret this result as normal/abnormal. CHOLESTEROL (test code = 2093-3) 213 MG/DL See_Comment H [Automated message] The system which generated this result transmitted reference range: <200 MG/DL. The reference range was not used to interpret this result as normal/abnormal. HDL CHOLESTEROL (test code = 2085-9) 77 MG/DL See_Comment [Automated message] The system which generated this result transmitted reference range: >39 MG/DL. The reference range was not used to interpret this result as normal/abnormal. RISK RATIO LDL/HDL (test code = 26721-7) 1.49 RATIO See_Comment [Automated message] The system which generated this result transmitted reference range: <3.22 RATIO. The reference range was not used to interpret this result as normal/abnormal. TRIGLYCERIDES (test code = 2571-8) 107 MG/DL See_Comment [Automated message] The system which generated this result transmitted reference range: <150 MG/DL. The reference range was not used to interpret this result as normal/abnormal. ALBUMIN (test code = 1751-7) 4.1 G/DL See_Comment [Automated message] The system which generated this result transmitted reference range: 3.5-5.2 G/DL. The reference range was not used to interpret this result as normal/abnormal. ALKALINE PHOSPHATASE (test code = 6768-6) 77 U/L See_Comment [Automated message] The system which generated this result transmitted reference range: 40-113 U/L. The reference range was not used to interpret this result as normal/abnormal. BILIRUBIN, TOTAL (test code = 1975-2) 0.3 MG/DL See_Comment [Automated message] The system which generated this result transmitted reference range: <=1.2 MG/DL. The reference range was not used to interpret this result as normal/abnormal. BUN (test code = 3094-0) 7 MG/DL See_Comment [Automated message] The system which generated this result transmitted reference range: 6-20 MG/DL. The reference range was not used to interpret this result as normal/abnormal. CALCIUM (test code = 99960-1) 9.6 MG/DL See_Comment [Automated message] The system which generated this result transmitted reference range: 8.5-10.5 MG/DL. The reference range was not used to interpret this result as normal/abnormal. CALC A/G RATIO (test code = 1759-0) 1.8 RATIO See_Comment [Automated message] The system which generated this result transmitted reference range: 1.0-2.6 RATIO. The reference range was not used to interpret this result as normal/abnormal. CALC BUN/CREAT (test code = 3097-3) 8 RATIO See_Comment [Automated message] The system which generated this result transmitted reference range: 6-28 RATIO. The reference range was not used to interpret this result as normal/abnormal. CALC GLOBULIN (test code = 55314-2) 2.3 G/DL See_Comment [Automated message] The system which generated this result transmitted reference range: 1.9-3.7 G/DL. The reference range was not used to interpret this result as normal/abnormal. CARBON DIOXIDE (test code = 1963-8) 29 MEQ/L See_Comment [Automated message] The system which generated this result transmitted reference range: 19-31 MEQ/L. The reference range was not used to interpret this result as normal/abnormal. CHLORIDE (test code = 2075-0) 106 MEQ/L See_Comment [Automated message] The system which generated this result transmitted reference range: 95-107 MEQ/L. The reference range was not used to interpret this result as normal/abnormal. CREATININE (test code = 2160-0) 0.93 MG/DL See_Comment [Automated message] The system which generated this result transmitted reference range: 0.60-1.30 MG/DL. The reference range was not used to interpret this result as normal/abnormal. eGFR (2020 CKD-EPI) (test code = 29776-3) 78 ML/MIN/1.73 See_Comment [Automated message] The system which generated this result transmitted reference range: >60 ML/MIN/1.73. The reference range was not used to interpret this result as normal/abnormal. GLUCOSE (test code = 1558-6) 80 MG/DL See_Comment [Automated message] The system which generated this result transmitted reference range: 70-99 MG/DL. The reference range was not used to interpret this result as normal/abnormal. POTASSIUM (test code = 2823-3) 4.1 MEQ/L See_Comment [Automated message] The system which generated this result transmitted reference range: 3.5-5.4 MEQ/L. The reference range was not used to interpret this result as normal/abnormal. PROTEIN, TOTAL (test code = 2885-2) 6.4 G/DL See_Comment [Automated message] The system which generated this result transmitted reference range: 6.1-8.3 G/DL. The reference range was not used to interpret this result as normal/abnormal. AST (test code = 1920-8) 20 U/L See_Comment [Automated message] The system which generated this result transmitted reference range: 9-40 U/L. The reference range was not used to interpret this result as normal/abnormal. ALT (test code = 1742-6) 17 U/L See_Comment [Automated message] The system which generated this result transmitted reference range: 5-40 U/L. The reference range was not used to interpret this result as normal/abnormal. SODIUM (test code = 2951-2) 144 MEQ/L See_Comment [Automated message] The system which generated this result transmitted reference range: 133-146 MEQ/L. The reference range was not used to interpret this result as normal/abnormal. [id number] 15:06:00* Test Item Value Reference Range Interpretation Comme nts SURGICAL (test code = SR) R UN DATE: 03/22/24 [facility] PAGE 1 RUN TIME: 1506 Specimen Inquiry RUN USER: INTERFACE P ATIENT: KAVITA JEFF LOC: Jose AntonioMOISE U #: [id number] AGE/SX: 43/F ROOM: [facility] RE03/20/24REG DR: Candice Echavarria MD : 82 BED: A DIS: STATUS: ADM IN TLOC: SPEC #: [id number] RECD: 03/21/24 STATUS: MITRA OLMOS #: [id number] JOSE ARMANDO: 03/20/245 [facility] DR: Candice Echavarria MD ENTERED: 03/21/24 SP TYPE: SURGICAL OTHR DR: ORDERED: ANATOMIC SPEC, SPEC TRACK, [id number] PROCEDURES: 19580 (03/21/24) TISSUES: A. PLACENTA, THIRD TRIMESTER (28 + WEEKS) - PLACENTA FINAL DIAGNOSIS PLACENTA, DELIVERY: Membranes - No significant pathologic alteration. Cotyledons - Pattern consistent with gestational age. - Focal increased fibrin deposition. Umbilical cord - Three vessels. GROSS DESCRIPTION Fixative: FormalinLabeled: PlacentaSpecimen received: Is a knutson placenta almost round placental plate with attachedmembranes and umbilical cord.Trimmed weight: 405 gDimensions: 17.5 x 16 x 2.5 cmFetal membranes: Are angel-paulino, semi translucent marginally inserted.Site of membrane rupture: 3 cm from the placental marginFetal surface: Is blue-pimentel, smooth, glistening exhibit normal vasculatureUmbilical cord: 3 vessels, 35 cm in length and ranges in diameter from 0.7 to 1.0 cmUmbilical cord insertion: Eccentric; 5.5 cm from closest placental margin.Umbilical cord appearance: Angel-white with 2 twists per 10 cmMaternal surface: Shows Complete, well-formed and intact cotyledonsCut surface: Reveals red, spongy parenchyma with no discrete lesions identifiedAbnormalities: None identified Side Laster Staple sections submitted as follows:A1 umbilical cord and membrane rollA2-A3 full-thickness placental cross-section, divided into and maternal aspectsA4 additional section of maternal surfaceAS/03/21/2024 Technical component performed at [facility] [place] [address] Immunohistochemical stains and Special Stains are performed at [employer] [place], CONTINUED ON NEXT PAGE R UN DATE: 03/22/24 [facility] PAGE 2 RUN TIME: 1506 Specimen Inquiry RUN USER: INTERFACE S PEC #: [id number] PATIENT: KAVITA JEFF #[id number] (Continued) GROSS DESCRIPTION (Continued) [address] [facility], [address], [place] [address] Unless gross only, the diagnosis is based upon microscopic examination. Immunohistochemistry: This test was developed and its performance characteristicsdetermined by this laboratory. It has not been approved nor does it need approval by [place] FDA. Appropriate positive and negative controls are reviewed and judged to beacceptable. This laboratory is certified under the Clinical Laboratory ImprovementAmendments (CLIA-88) as qualified to perform high complexity clinical laboratory testing. MICROSCOPIC DESCRIPTION Microscopic examination is performed and the findings are incorporated in the diagnosis. CLINICAL INFORMATION 03/20/24, OOB:1225, TIF:7321, PLACENTA PREVIA 36.2 IUP. --- Signed _ Donna Mcintyre 03/22/24 1506 END OF REPORT HGB [id number] 08:20:00* Test Item Value Reference Range Interpretation Comme nts HEMOGLOBIN (test code = HGB) 8.3 g/dL 10.1-13.8 L HEMATOCRIT (test code = HCT) 27.5 % 32.5-41.8 L AG HEPATITIS B [id number] 19:59:00* Test Item Value Reference Range Interpretation Comme nts AG HEPATITIS B SURFACE (test code = HBSAG) NON REACTIVE NONREACTIVE AB HEPATITIS C [id number] 19:59:00* Test Item Value Reference Range Interpretation Comme nts AB HEPATITIS C (test code = HCVAB) NONREACTIVE NONREACTIVE SIGNAL TO CUTOFF (test code = CUTOFF) 0.12 <0.80 N AB [id number] 19:59:00* Test Item Value Reference Range Interpretation Comme nts AB TREPONEMA (test code = TREPAB) NONREACTIVE NONREACTIVE AB HIV 1 19:59:00* Test Item Value Reference Range Interpretation Comme nts AB HIV 1 2 (test code = SAT56LW) NONREACTIVE NONREACTIVE Done by [facility] 4th Gen HIV Ag/Ab Combo Screen COMPREHENSIVE METABOLIC [id number] 17:26:00* Test Item Value Reference Range Interpretation Comme nts SODIUM (test code = NA) 138 mEq/L 136-145 N POTASSIUM (test code = K) 3.7 mEQ/L 3.4-4.5 N Please note new normal range as of September 2023 CHLORIDE (test code = CL) 107 mEq/L 98-107 N Please note new normal range as of September 2023 CARBON DIOXIDE (test code = CO2) 22 mEq/L 22-31 N ANION GAP (test code = GAP) 12.7 10-20 N GLUCOSE (test code = GLU) 94 mg/dL 74-106 N Please note new normal range as of September 2023 BLOOD UREA NITROGEN (test code = BUN) 9 mg/dL 8-23 N Please note ne w normal range as of September 2023 CREATININE (test code = CREAT) 0.7 mg/dL 0.55-1.02 N Please note new normal range as of September 2023 TOTAL PROTEIN (test code = PROT) 6.4 g/dL 5.7-8.2 N Please note new normal range as of September 2023 ALBUMIN (test code = ALB) 4.1 g/dL 3.2-4.8 N Please note new normal range as of September 2023 CALCIUM (test code = CA) 9.2 mg/dL 8.3-10.6 N Please note new normal range as of September 2023 BILIRUBIN TOTAL (test code = BILT) 0.5 mg/dL 0.3-1.2 N Please note n ew normal range as of September 2023 SGOT/AST (test code = AST) 24 units/L < 34 SGPT/ALT (test code = ALT) 13 units/L 10-49 N ALKALINE PHOSPHATASE TOTAL (test code = ALKP) 115 units/L 46-116 N Please note n ew normal range as of September 2023 GLOMERULAR FILTRATION RATE (test code = GFR) 110.67 ml/min >60 N The Glomerular Filtration Rate is a calculated parameterbased on serum Creatinine, patient age and sex. GFR valuesless than 60 mL/min/1.73 square meters are indicative ofChronic Kidney Disease. Values less than 15 mL/min/1.73square meters indicate Kidney failure. The calculation forGFR is based on the CKD-EPI (2020) calculation. This formulais race indifferent and is the recommended formula for GFRby the National Kidney Foundation for Adults.The GFR will not calculate if the sex is unknown or if thepatient's age is <18 years. CBC W/AUTO [id number] 16:55:00* Test Item Value Reference Range Interpretation Comme nts WHITE BLOOD CELL (test code = WBC) 8.4 K/mm3 6.5-12.3 N RED BLOOD CELL (test code = RBC) 4.14 M/mm3 3.51-4.69 N HEMOGLOBIN (test code = HGB) 10.9 g/dL 10.1-13.8 N HEMATOCRIT (test code = HCT) 34.8 % 32.5-41.8 N MEAN CELL VOLUME (test code = MCV) 84.1 fL 84.6-96.6 L MEAN CELL HGB (test code = MCH) 26.3 pg 27.3-33.9 L MEAN CELL HGB CONCETRATION ( test code = MCHC) 31.3 gm/dL 32.0-34.2 L RED CELL DISTRIBUTION WIDTH (test code = RDW) 19.9 % 12.2-16.3 H PLATELET COUNT (test code = PLT) 180 K/mm3 134-363 N MEAN PLATELET VOLUME (test c ode = MPV) 11.8 fL 9.2-12.7 N NEUTROPHIL % (test code = NT%) 69.6 % 57.9-77.3 N LYMPHOCYTE % (test code = LY%) 18.7 % 14.5-29.7 N MONOCYTE % (test code = MO%) 9.1 % 3.6-10.2 N EOSINOPHIL % (test code = EO%) 1.4 % 0.0-3.0 N BASOPHIL % (test code = BA%) 0.2 % 0.1-0.9 N NEUTROPHIL # (test code = NT#) 5.8 K/mm3 LYMPHOCYTE # (test code = LY#) 1.6 K/mm3 MONOCYTE # (test code = MO#) 0.8 K/mm3 EOSINOPHIL # (test code = EO#) 0.12 K/mm3 BASOPHIL # (test code = BA#) 0.0 K/mm3 CBC W/AUTO [id number] 00:00:00* Test Item Value Reference Range Interpretation Comme nts NUCLEATED RBCS (test code = 61668-1) 0.0 /100 WBC'S See_Comment [Automated messa ge] The system which generated this result transmitted reference range: 0.0 /100 WBC'S. The reference range was not used to interpret this result as normal/abnormal. ABSOLUTE EOSINOPHILS (test code = 49273-8) 0.22 K/UL See_Comment [Automated messa ge] The system which generated this result transmitted reference range: 0.00-0.50 K/UL. The reference range was not used to interpret this result as normal/abnormal. ABSOLUTE LYMPHOCYTES (test code = 07998-4) 1.64 K/UL See_Comment [Automated messa ge] The system which generated this result transmitted reference range: 1.00-4.00 K/UL. The reference range was not used to interpret this result as normal/abnormal. ABSOLUTE MONOCYTES (test code = 46644-8) 0.48 K/UL See_Comment [Automated messa ge] The system which generated this result transmitted reference range: 0.20-1.00 K/UL. The reference range was not used to interpret this result as normal/abnormal. ABSOLUTE NEUTROPHILS (test code = 68726-0) 2.25 K/UL See_Comment [Automated messa ge] The system which generated this result transmitted reference range: 1.50-7.50 K/UL. The reference range was not used to interpret this result as normal/abnormal. BASOPHILS (test code = 59284-4) 0.9 % EOSINOPHILS (test code = 96228-2) 4.7 % HEMATOCRIT (test code = 03343-3) 42.1 % See_Comment [Automated messa ge] The system which generated this result transmitted reference range: 34.0-45.0 %. The reference range was not used to interpret this result as normal/abnormal. HEMOGLOBIN (test code = 718-7) 13.9 G/DL See_Comment [Automated messa ge] The system which generated this result transmitted reference range: 11.5-15.5 G/DL. The reference range was not used to interpret this result as normal/abnormal. LYMPHOCYTES (test code = 59156-0) 35.3 % MCH (test code = 82671-8) 29.1 PG See_Comment [Automated messa ge] The system which generated this result transmitted reference range: 25.0-33.0 PG. The reference range was not used to interpret this result as normal/abnormal. MCHC (test code = 67295-0) 33.0 G/DL See_Comment [Automated messa ge] The system which generated this result transmitted reference range: 31.0-36.0 G/DL. The reference range was not used to interpret this result as normal/abnormal. MCV (test code = 76073-2) 88.1 fL See_Comment [Automated messa ge] The system which generated this result transmitted reference range: 80.0-99.0 fL. The reference range was not used to interpret this result as normal/abnormal. MONOCYTES (test code = 96840-8) 10.3 % NEUTROPHILS (test code = 65715-7) 48.6 % PLATELET COUNT (test code = 96625-9) 248 K/UL See_Comment [Automated messa ge] The system which generated this result transmitted reference range: 130-400 K/UL. The reference range was not used to interpret this result as normal/abnormal. RBC (test code = 44077-4) 4.78 M/UL See_Comment [Automated messa ge] The system which generated this result transmitted reference range: 3.80-5.40 M/UL. The reference range was not used to interpret this result as normal/abnormal. RDW (test code = 89423-1) 12.2 % See_Comment [Automated TermSynca [place]] The system which generated this result transmitted reference range: 11.5-15.0 %. The reference range was not used to interpret this result as normal/abnormal. WBC (test code = 88792-6) 4.6 K/UL See_Comment [Automated TermSynca ge] The system which generated this result transmitted reference range: 3.5-11.0 K/UL. The reference range was not used to interpret this result as normal/abnormal. [id number] 00:00:00* Test Item Value Reference Range Interpretation Comme nts ESTRADIOL (test code = 2243-4) <17.0 PG/ML SEE BELOW PG/ML - XR UGI W/AIR [id number] 12:10:00 [facility] 1980 Sex: FPatient Name: KAVITA JEFF Unit No: [id number] EXAMS: CPT CODE: [id number] XR UGI W/AIR W/KUB 04476 Single contrast upper GI 7 views 11/05/2021 CLINICAL INDICATION: Gastroesophageal reflux LOCATION: W1 REPORTED FLUOROSCOPY TIME: 75 seconds FINDINGS: Fluoroscopic imaging during oral administration of single contrast thin liquid barium revealed contrast passing into the stomach and small bowel with no evidence for leak. There was no esophageal dilation, stricture or dysmotility. No reflux or hiatal hernia was visualized. IMPRESSION: Unremarkable postoperative examination. at 1210 Reported and signed by: KARINA Lazo CC: Drew Wade MD Technologist: Aman Kelly Time: DAP (Gy m2): Air Kerma (mGy): Trscr Dt/Tm: 11/05/2021 (1210) by:[email or web address] Printed Date/Time: 11/05/2021 (1213) Name: KAVITA JEFF [facility] Phys: Drew Westbrook MD [address] : 1980 Age: 41 Sex: [place] [address] Loc: P.RAD Exam Date: 11/05/2021 Status: REG CLI PH: FAX: PAGE 1 Signed Report- XR SACRUM/COCCYX 2 + [id number] 12:13:00 [facility] : 1980 Sex: FPatient Name: KAVITA JEFF Unit No: [id number] EXAMS: CPT CODE: [id number] XR SACRUM/CO CCYX 2 + V 08787 EXAM: Sacrum and coccyx 2 views Location code: A1 HISTORY: Fracture COMPARISON: None available FINDINGS: There is no acute fracture or dislocation. Fine osseous detail of the sacrumis obscured by overlying bowel gas and stool. Sacroiliac joints are within normal limits. Sacral arcs are intact. IMPRESSION: No acute osseous abnormality. Electronically Signed by JASON DUBON M.D.on 10/27/2021 at 1213 Reported and signed by: JASON DUBON M.D. CC: Kris Shields MD Technologist: Santiago Kelly Time: DAP (Gy m2): Air Kerma (mGy): Trscr Dt/Tm: 10/27/2021 (7183) by:[email or web address] Printed Date/Time: 10/27/2021 (2310) Name: KAVITA JEFF [facility] Phys: Kris Boogie MD [address] : 1980 Age: 41 Sex: [place] [address] Loc: P.ERS Exam Date: 10/27/2021 Status: REG ER PH: FAX: PAGE 1 Signed Report- XR CHEST 1 [id number] 12:13:00 [facility] : 1980 Sex: FPatient Name: KAVITA JEFF Unit No: [id number] EXAMS: CPT CODE: [id number] XR CHEST 1 V 47699 EXAM: Chest one view. Location: HISTORY: Chest Pain, syncope, fall COMPARISON: None available. FINDINGS: The lungs are free of focal airspace consolidations.. There are no pleural effusionsor pneumothorax. The aorta, pulmonary vasculature and mediastinum are within normal limits. Cardiac silhouette is normal in size and contour. Visualized skeletal structures are unremarkable. IMPRESSION: No active disease in the chest. at 1213 Reported and signed by: JASON DUBON M.D. CC: Kris Shields MD Technologist: Fili Matthew Fluoro Time: DAP (Gy m2): Air Kerma (mGy): Trscr Dt/Tm: 10/27/2021 (1213) by:[email or web address] Printed Date/Time: 10/27/2021 (7824) Name: ELLENKAVITA MOON [facility] Phys: Kris Boogie MD [address] : 1980 Age: 41 Sex: [place] [address] Loc: P.ERS Exam Date: 10/27/2021 Status: REG ER PH: FAX: PAGE 1 Signed [id number] 12:09:00* Test Item Value Reference Range Interpretation Comme nts TROPONIN-I (test code = TROPI) < 2.5 pg/mL 27.36-66.23 L Please note: Uni ts and Reference Range have changedFeb 2020 HCG SERUM [id number] 11:52:00* Test Item Value Reference Range Interpretation Comme nts HCG SERUM QUAL (test code = HCGQL) NEGATIVE NEGATIVE DATE OF LAST MENSTRUAL PERIOD: 10/26/21BASIC METABOLIC [id number] 11:51:00 * Test Item Value Reference Range Interpretation Comme nts SODIUM (test code = NA) 139 mmol/L 136-145 N Please note: New Reference Range Jun 2020 POTASSIUM (test code = K) 4.0 mmol/L 3.5-5.1 N CHLORIDE (test code = CL) 106 mmol/L 98-107 N Please note: New Reference Range Jun 2020 CARBON DIOXIDE (test code = CO2) 25 mmol/L 20-31 N Please note: N ew Reference Range Jun 2020 GLUCOSE (test code = GLU) 80 mg/dL 74-106 N Please note: New Reference Range Jun 2020 BLOOD UREA NITROGEN (test code = BUN) 8 mg/dL 9-23 L Please note: New Reference Range Jun 2020 GLOMERULAR FILTRATION RATE (test code = GFR) >=60 max estimate mL/min >60 Units are mL/min/1.73m2 The estimated glomerular filtration rate is computed usingpatient race, age (>18), sex, and serum creatinine. If anyof the needed data elements are missing the Laboratory cannot compute an estimation of the glomerular filtration rate. CREATININE (test code = CREAT) 0.80 mg/dL 0.55-1.02 N Please note: New Reference Range Jun 2020 CALCIUM (test code = CA) 9.2 mg/dL 8.7-10.4 N Please note: New Reference Range Jun 2020 - CT HEAD/BRAIN W/O [id number] 11:44:00 [facility] : 1980 Sex: FPatient Name: KAVITA JEFF Unit No: [id number] EXAMS: CPT CODE: [id number] CT HEAD/BRAIN W/O CONT 35523 EXAM: CT Head without contrast Location: A1 HISTORY: Syncope, fall COMPARISON: Noneavailable. TECHNIQUE: Multiple transaxial images of the brain were obtained without intravenous contrast. Images were reformatted to create coronal and sagittal reconstructions. One or more of the following dose reduction techniques were used: Automated exposure control, adjustment of the mA and/orkV according to patient size, and/or utilization of iterative reconstruction technique. DLP: 797 mGy-cm. FINDINGS: There is no acute intracranial hemorrhage. There is no mass, mass effect, midline shift or extra- axial fluid collection. Brain parenchymal volume and ventricular caliber are within normal limits. Pimentel-white differentiation is maintained. There is no evidence for acute major vessel infarct. Paranasal sinuses, mastoid air cells and visualized orbital contents are within normal limits. Osseous structures are within normal limits. IMPRESSION: No acute intracranial abnormality. No acute hemorrhage, mass lesion or infarct. at 1144 Reported and signed by: JASON DUBON M.D. CC: Kris Shields MD Technologist: Kayden Huber; Ren Fuentes; Stella Mohan CTDI: 42.07 DLP: 797 Trs Dt/Tm: 10/27/2021 (1144) by:Dami Printed Date/Time: 10/27/2021 (114) Name: KAVITA JEFF [facility] Phys: Kris Boogie MD[address] : 1980 Age: 41 Sex: [place] [address] Loc: P.ERS Exam Date: 10/27/2021 Status: REG ER PH: FAX: PAGE 1 Signed ReportCBC W/AUTO [id number] 11:28:00* Test Item Value Reference Range Interpretation Comme nts WHITE BLOOD CELL (test code = WBC) 6.9 x10 3/uL 4.8-10.8 N RED BLOOD CELL (test code = RBC) 4.94 x10 6/uL 4.20-5.40 N HEMOGLOBIN (test code = HGB) 14.8 g/dL 12.0-16.0 N HEMATOCRIT (test code = HCT) 43.6 % 37.0-47.0 N MEAN CELL VOLUME (test code = MCV) 88.3 fL 81.0-99.0 N MEAN CELL HGB (test code = MCH) 30.0 pg 27-31 N MEAN CELL HGB CONCENTRATION (test code = MCHC) 33.9 G/DL 33-36.5 N RED CELL DISTRIBUTION WIDTH (test code = RDW) 13.4 % 12.9-16.9 N PLATELET COUNT (test code = PLT) 267 x10 3/uL 150-440 N MEAN PLATELET VOLUME (test c ode = MPV) 11.8 fL 8.9-12.4 N NEUTROPHIL % (test code = NT%) 60.8 % 42.2-75.2 N LYMPHOCYTE % (test code = LY%) 27.6 % 20.5-51.1 N MONOCYTE % (test code = MO%) 9.0 % 1.7-9.3 N EOSINOPHIL % (test code = EO%) 1.9 % 0.0-7.0 N BASOPHIL % (test code = BA%) 0.6 % 0-2.5 N NEUTROPHIL # (test code = NT#) 4.20 x10 3/uL 1.80-7.70 N LYMPHOCYTE # (test code = LY#) 1.91 x10 3/uL 1.00-4.80 N MONOCYTE # (test code = MO#) 0.62 x10 3/uL 0.00-0.80 N EOSINOPHIL # (test code = EO#) 0.13 x10 3/uL 0.00-0.45 N BASOPHIL # (test code = BA#) 0.04 x10 3/uL 0.0-0.20 N CBC W/AUTO [id number] 09:54:00* Test Item Value Reference Range Interpretation Comme nts WHITE BLOOD CELL (test code = WBC) 6.4 x10 3/uL 4.8-10.8 N RED BLOOD CELL (test code = RBC) 4.94 x10 6/uL 4.20-5.40 N HEMOGLOBIN (test code = HGB) 14.1 g/dL 12.0-16.0 N HEMATOCRIT (test code = HCT) 42.6 % 37.0-47.0 N MEAN CELL VOLUME (test code = MCV) 86.2 fL 81.0-99.0 N MEAN CELL HGB (test code = MCH) 28.5 pg 27-31 N MEAN CELL HGB CONCENTRATION (test code = MCHC) 33.1 G/DL 33-36.5 N RED CELL DISTRIBUTION WIDTH (test code = RDW) 13.4 % 12.9-16.9 N PLATELET COUNT (test code = PLT) 283 x10 3/uL 150-440 N MEAN PLATELET VOLUME (test c ode = MPV) 11.2 fL 8.9-12.4 N NEUTROPHIL % (test code = NT%) 60.9 % 42.2-75.2 N LYMPHOCYTE % (test code = LY%) 25.8 % 20.5-51.1 N MONOCYTE % (test code = MO%) 9.9 % 1.7-9.3 H EOSINOPHIL % (test code = EO%) 2.7 % 0.0-7.0 N BASOPHIL % (test code = BA%) 0.5 % 0-2.5 N NEUTROPHIL # (test code = NT#) 3.87 x10 3/uL 1.80-7.70 N LYMPHOCYTE # (test code = LY#) 1.64 x10 3/uL 1.00-4.80 N MONOCYTE # (test code = MO#) 0.63 x10 3/uL 0.00-0.80 N EOSINOPHIL # (test code = EO#) 0.17 x10 3/uL 0.00-0.45 N BASOPHIL # (test code = BA#) 0.03 x10 3/uL 0.0-0.20 N UR HCG [id number] 09:19:00* Test Item Value Reference Range Interpretation Comme nts UR HCG QUAL (test code = HCGQLU) NEGATIVE NEGATIVE [id number] 16:50:00* Test Item Value Reference Range Interpretation Comme nts SURGICAL (test code = SR) RUN DATE: 06/03/21 [facility] - LAB PAGE 1 RUN TIME: 1650 Specimen Inquiry RUN USER: INTERFACE PATIENT: KAVITA JEFF LOC: MARIA ALEJANDRA U #: [id number] AGE/SX: 41/F ROOM: RE06/01/21REG DR: Drew Wade MD : 82 BED: DIS: STATUS: DEP [facility] TLOC: SPEC #: [id number] RECD: 06/01/21 STATUS: MITRA OLMOS #: [id number] JOSE ARMANDO: 06/01/[address] [facility] DR: Drew Wade MD ENTERED: 06/01/21 SP TYPE: SURGICAL OTHR DR: Tato Provider ORDERED: 22150/2, 27038, ANATOMIC SPEC HISTOLOGY: TISSUE ID BLK PCS ZABRINA LEV / PROCEDURE DISPOSITION ____ ___ ___ ___ ___ STOM A 1 3 GASTRO ESOPH B 1 3 TISSUES: A. STOMACH BIOPSY/POLYP - Stomach Body Lesion Bx B. GASTRO ESOPHAGEAL - EG Junction Bx FINAL DIAGNOSIS A. STOMACH, BODY, LESION, BIOPSY: - Fundic gland polyp. - Negative for intestinal metaplasia, dysplasia, and malignancy. - An immunohistochemical stain for Helicobacter pylori is negative. B. GASTROESOPHAGEAL JUNCTION, MUCOSAL BIOPSY: - Esophageal squamous mucosa with focal mild reactive changes. - Gastric cardiac mucosa with mild chronic carditis. - Negative for intestinal metaplasia, dysplasia, and malignancy. GROSS DESCRIPTION A. Received in formalin, labeled with patient's name and date of designated specimenA "stomach body lesion biopsy". It consists of four angel soft tissue fragments measuring0.3 cm each. The specimens are submitted entirely in cassette A. B. Received in formalin, labeled with patient's name and date of designated specimenB "GE junction biopsy". It consists of three angel soft tissue fragments measuring 0.3 cmeach. The specimens are submitted entirely in cassette B. JANESSA/jumana Technical component performed at [facility] [facility], [facility], [address] CONTINUED ON NEXT PAGE RUN DATE: 06/03/21 [facility] - LAB PAGE 2 RUN TIME: 1650 Specimen Inquiry RUN USER: INTERFACE SPEC #: [id number] PATIENT: KAVITA JEFF #[id number] (Continued) MICROSCOPIC DESCRIPTION PERFORMED AND INCORPORATED INTO THE FINAL DIAGNOSIS. CLINICAL INFORMATION Small Sliding H/H, esophagitis, Subcentimeter Sesslie Lesion Signed SIGNATURE ON FILE Yaron Adrian 06/03/21 1650 END OF REPORT UR HCG [id number] 11:13:00* Test Item Value Reference Range Interpretation Comme nts UR HCG QUAL (test code = HCGQLU) NEGATIVE NEGATIVE Chest Pa And Lat (2 Views)Chest Pa And Lat (2 Views)Thyroid Para Parotid Gland Thyroid Para Parotid Gland Notes Date/Time Note Provider Source 2024-03-23 11:33:00 [facility] ([facility] OB Postpart Progr Note REPORT#:[id number] REPORT STATUS: Signed REPORT INITIALIZATION DATE:03/23/24 TIME: 1133 PATIENT: KAVITA JEFF UNIT #: [id number] ROOM/BED: [address] : [birth year] AGE: 43 SEX: F ATTEND: Candice Echavarria MD ADM AUTHOR: Candice Echavarria MD REPT SERVICE DT/TIME: 03/23/24 1133 * ALL edits or amendments must be made on the electronic/computer document * Subjective Subjective Admission EGA: Weeks: 36 Days: 2 EGA at delivery (wks/days): 36 weeks Status/Day: post operative (day #3) Patient reports: Patient reports: Yes no complaints, Yes normal lochia, Yes pain management effective, Yes tolerating po well, Yes voiding well, Yes voiding without pain, Yes tolerating ambulation, Yes flatus Comments: She reports some burning on the upper right side of the incision. Pain is much better controlled. Objective Nursing Documentation Review Nursing Data: The data set between the solid lines has been imported from nursing documentation. Any exceptions have been noted below under Provider comments. Feeding preference: Post hemorrhage risk score: HighRisk Provider comments on imported nursing data: [] General VS: Vital Signs: Date Time Temp Pulse Resp B/P B/P Pulse O2 O2 Flow FiO2 Mean Ox Delivery Rate 03/23 921 97.9 87 20 103/68 79.6 100 PATIENT WEIGHT: Weight (lb): 180 Weight (oz): Weight (kg): 81.800 Physical Exam Neuro: Exam: alert, oriented x3, normal speech, CNII-XII grossly intact Abdomen: soft, no abnormal tenderness, no guarding, no rebound tenderness Incision site: well approximated edges, dry, no drainage, no inflammation Uterus: firm, involution appropriate, non-tender Fundus: firm, below the umbilicus Lochia: normal Lower extremities: Edema: trace Diagnosis, Assessment Plan Diagnosis, Assessment Plan Assessment: nml progress, acute blood loss anemia Plan: routine care, discharge today at 1135 RPT #:[id number] END OF REPORT [facility] 2024-03-21 17:09:00 [facility] ([facility]) OB Disch REPORT#:[id number] REPORT STATUS: Signed REPORT INITIALIZATION DATE:03/21/24 TIME: 1708 PATIENT: KAVITA JEFF UNIT #: [id number] ROOM/BED: [address] : [birth year] AGE: 43 SEX: F ATTEND: Candice Echavarria MD ADM AUTHOR: Candice Echavarria MD REPT SERVICE DT/TIME: 03/21/241708 * ALL edits or amendments must be made on the electronic/computer document * Discharge Summary General Assessment: nml progress, acute blood loss anemia Date of admission: Date of admission: 03/20/24 Admission diagnosis: placenta previa Hospital course: primary admit, nml postop/postpart care Procedures: primary CS delivery Discharge condition: stable Discharge to: Home/Self Care Discharge diagnosis: full-term uncomp delivery Discharge management: less than 30 mins Baby A: status: live born Gender: female 1 minute: 8 5 minutes: 9 Anomalies: none Nursing data: The data set between the solid lines has been imported from nursing documentation. Any exceptions have been noted below under Provider comments. Delivery date A: 03/20/24 Delivery time infant A: 1223 Birthweight (gm) infant A: 2640 Feeding preference: Gender infant A: Female 1 minute A: 8 5 minutes A: 9 10 minutes A: Provider comments on imported nursing data: [] Discharge Instructions Instructions: routine instr sheet given Diet: Regular Activity: As Tolerated, No Driving, No [place] for 6 Wks, No Lifting >20lbs, No Strenuous Activity Additional discharge routines: Attending Follow-Up, Wound/Dressing Care Wound/dressing care: Keep wound clean and dry Discharge meds: Stop taking the following medications: Hydrocodone/Acetaminophen (HYDROcodone/APAP 5/325) 1 TAB TAB 1 TABLET ORAL EVERY 3 HOURS NEEDED IBUPROFEN (MOTRIN) 600 MG TAB 600 MILLIGRAM ORAL EVERY SIX HOURS NEEDED Continue taking these medications: VIT/FE FUMARATE/FA ( Multivitamin w/ Iron) 1 EACH TABLET 1 TABLET ORAL DAILY. FLUTICASONE PROPIONATE (FLONASE 50 MCG/ACT NASAL) 50 MCG/ACTUATION SPRAY CETIRIZINE (CETIRIZINE) [address] (PROTONIX) 20 MG TAB.DR 20 MILLIGRAM ORAL DAILY. Start taking the following new medications: IBUPROFEN (MOTRIN) 600 MG TAB 600 MILLIGRAM ORAL EVERY 6 HOURS NEEDED. as needed for PAIN SCALE 1-3 ( USE 1ST) Qty = 30 No Refills oxyCODONE (oxyCODONE) 5 MG TAB 5 MILLIGRAM ORAL EVERY 4 HOURS NEEDED. as needed for PAIN SCALE 4-6 Qty = 30 No Refills Prescriptions: e-prescribe Rx drug database reviewed: yes Add'l Follow-up Appointments Attending Physician: Attending Physician: Candice Echavarria MD Attending physician follow up timeframe: In 2-3 weeks at 1710 RPT #:[id number] END OF REPORT [facility] 2024-03-21 13:21:00 [facility] ([facility]) OB Postpart Progr Note REPORT#:[id number] REPORT STATUS: Signed REPORT INITIALIZATION DATE:03/21/24 TIME: 132 PATIENT: KAVITA JEFF UNIT #: [id number] ROOM/BED: [address] : [birth year] AGE: 43 SEX: F ATTEND: Candice Echavarria MD ADM AUTHOR: Candice Echavarria MD REPT SERVICE DT/TIME: 03/21/24 1321 * ALL edits or amendments must be made on the electronic/computer document * Subjective Subjective Admission EGA: Weeks: 36 Days: 2 EGA at delivery (wks/days): 36 weeks Status/Day: post operative (day #1) Patient reports: Patient reports: Yes no complaints, Yes normal lochia, Yes pain management effective, Yes tolerating po well, Yes voiding well, Yes voiding without pain, Yes tolerating ambulation, No flatus Comments: No dizziness or lightheadedness with ambulation. Objective Nursing Documentation Review Nursing Data: The data set between the solid lines has been imported from nursing documentation. Any exceptions have been noted below under Provider comments. Feeding preference: Post hemorrhage risk score: LowRisk Provider comments on imported nursing data: [] General VS: Vital Signs: Date Time Temp Pulse Resp B/P B/P Pulse O2 O2 Flow FiO2 Mean Ox Delivery Rate 03/21 905 72.0 03/21 09 98.3 51 18 97/60 100 03/21 0453 98.1 54 18 90/58 68.7 98 Room air 03/20 2355 97.9 60 18 100/64 76.3 96 Room air 03/20 2010 97.7 64 18 98/67 77.3 100 Room air 03/20 1800 98.3 55 16 112/63 98 03/20 1700 77.0 03/20 1700 52 18 113/56 100 03/20 1655 54 17 100 03/20 1650 51 17 100 03/20 1646 78.0 03/20 1646 108/54 03/20 1645 60 19 100 03/20 1640 51 16 100 03/20 1635 52 17 100 03/20 1630 77.0 03/20 1630 50 18 104/60 100 03/20 1625 52 17 100 03/20 1620 57 19 100 03/20 1615 77.0 03/20 1615 60 101/58 100 03/20 1610 53 100 11/05 1605 51 100 11/05 1600 75.0 11/05 1600 55 101/57 100 11/05 1555 54 100 11/05 1550 58 31 100 11/05 1545 76.0 11/05 1545 58 30 104/59 100 11/05 1540 51 16 100 11/05 1535 54 21 100 11/05 1530 74.0 11/05 1530 58 31 101/58 100 11/05 1525 55 19 100 11/05 1520 52 15 100 11/05 1515 74.0 11/05 1515 52 0 100/57 100 11/05 1510 51 10 100 11/05 1505 53 17 100 11/05 1500 73.0 11/05 1500 54 14 99/57 100 11/05 1455 52 15 100 11/05 1450 53 15 100 11/05 1445 77.0 11/05 1445 52 15 102/61 100 11/05 1440 51 16 100 11/05 1435 55 16 100 11/05 1430 78.0 11/05 1430 56 17 102/62 100 11/05 1425 67 22 100 11/05 1420 60 15 100 11/05 1416 70.0 11/05 1416 98/53 11/05 1415 55 6 100 11/05 1410 53 12 100 11/05 1405 55 16 100 11/05 1400 72.0 11/05 1400 52 8 98/53 100 11/05 1355 51 14 100 11/05 1350 53 17 100 11/05 1346 69.0 11/05 1346 95/53 11/05 1345 56 18 100 11/05 1340 59 16 100 11/05 1335 60 19 100 11/05 1330 70.0 11/05 1330 54 97/54 100 PATIENT WEIGHT: Weight (lb): 180 Weight (oz): Weight (kg): 81.800 Physical Exam Neuro: Exam: alert, oriented x3, normal speech, CNII-XII grossly intact Abdomen: soft, no abnormal tenderness, no guarding, no rebound tenderness Incision site: well approximated edges, dry, no drainage, no inflammation Uterus: firm, involution appropriate, non-tender Fundus: firm, below the umbilicus Lochia: normal Lower extremities: Edema: trace Result Findings/Data: Laboratory Tests: 03/21 649 Hematology Hgb (10.1 - 13.8 g/dL) 8.3 L Hct (32.5 - 41.8 %) 27.5 L Diagnosis, Assessment Plan Diagnosis, Assessment Plan Assessment: nml progress, acute blood loss anemia Plan: routine care, discharge tomorrow at 1322 RPT #:[id number] END OF REPORT [facility] 2024-03-20 13:07:00 [facility] OB Delivery Note REPORT#:[id number] REPORT STATUS: Signed REPORT INITIALIZATION DATE:03/20/24 TIME: 130 PATIENT: KAVITA JEFF UNIT #: [id number] ROOM/BED: : 82 AGE: 43 SEX: F ATTEND: Candice Echavarria MD ADM AUTHOR: Candice Echavarria MD REPT SERVICE DT/TIME: 03/20/24 1307 * ALL edits or amendments must be made on the electronic/computer document * OB Delivery Nursing Documentation Review Nursing data: The data set between the solid lines has been imported from nursing documentation. Any exceptions have been noted below under Provider comments. _ ROM date: ROM time: Membranes rupture method: AROM Amniotic fluid color: Amniotic fluid amount: Steroids prior to arrival: Antibiotic prophylaxis given: Yes Post hemorrhage risk score: LowRisk Delivery date infant A: Delivery time A: Birthweight (gm) A: Weight (lb) infant A: Weight (oz) A: Gender infant A: Female 1 minute infant A: 5 minutes infant A: 10 minutes infant A: Cord pH obtained infant A: Vacuum time infant A: Vacuum # pulls A: Vacuum # popoffs infant A: QBL at delivery: __ Provider comments on imported nursing data: [] Pre-delivery GBS status: GBS status: negative evaluation at delivery: NRP certified personnel Admission EGA: Weeks: 36 Days: 2 EGA at delivery (wks/days): 36 weeks Blood Loss/Details Blood loss at delivery: no more than expected Baby A Information Baby A information Delivery date: 03/20/24 Delivery time: 1223 status: live born Wt of baby (grams): 2640 Wt of baby (lbs/oz): 5#13oz Gender: female 1 minute: 8 5 minutes: 9 Presentation: vertex Anomalies: none ABG details Baby A Cord blood gases: not collected Nuchal cord Baby A Nuchal cord: no Operative Note-Full ORM Surgeries: Surgery Date and Time: 03/20/2024944 Proposed Primary Procedure: SECTION(P C/S PLACENTA PREVIA Nursing Data: The data set between the solid lines has been imported from nursing documentation. Any exceptions have been noted below under Provider comments. _ ROM date: ROM time: Membranes rupture method: AROM Amniotic fluid color: Amniotic fluid amount: Steroids prior to arrival: Antibiotic prophylaxis given: Yes Post hemorrhage risk score: LowRisk Delivery date A: Delivery time infant A: Birthweight (gm) A: Weight (lb) infant A: Weight (oz) infant A: Gender infant A: Female 1 minute A: 5 minutes A: 10 minutes A: Cord pH obtained A: Vacuum time A: Vacuum # pulls A: Vacuum # popoffs A: QBL at delivery: __ Provider comments on imported nursing data: [] )(Start date: 03/20/24 )(Start time: 1220 )(Pre-procedure diagnosis: SIUP at 36 weeks, Placenta Previa )(Post-procedure diagnosis: same as pre-procedure dx )(Procedures performed: Primary low transverse Section )(Technique/Procedure: Patient was taken to the operating room where epidural anesthesia was placed and found to be adequate. She was then positioned in the dorsal supine position with a leftward tilt. She was prepped and draped in the usual sterile fashion. A time out was performed. A Pfannenstiel skin incision was made with the knife and carried down to the underlying layer of fascia with the knife. The fascia was knicked in the midline, and the incision was extended laterally with the Worley scissors. The fascia was grasped, elevated, and transected from the underlying rectus muscles with the Worley scissors. The muscles were split in the midline bluntly. The peritoneum was entered bluntly and the incision extended bluntly with good visualization of the bladder. A bladder blade was inserted. The vesicouterine peritoneum was grasped, elevated, and transected with the Metzenbaum scissors. A bladder flap was created digitally. The bladder blade was replaced. A low transverse incision was made the scalpel. This incision was extended bluntly. The infant's head was grasped, brought to the hysterotomy, and delivered atraumatically. The 's shoulders and body easily followed. The 's nose and mouth were bulb suctioned, and after a brief delay, the cord was clamped x 2 and cut. The was handed off to awaiting nursery nurse. The placenta delivered spontaneously and intact. The uterus was exteriorized and cleared of all clots and debris. The hysterotomy was repaired with 0 vicryl in a running, locked fashion. A large expanding hematoma of the superior incision on the right side was noted. Once the hysterotomy was closed, this was excised for 1 cm to allow evacuation of blood clots. The myometrium was then compressed with multiple mattress sutures of 0 vicryl to achieve successful compression. No further hematoma expansion was then noted. Hemostasis was noted. The uterus was returned to the abdomen. The gutters were cleared of all clots and debris. The hysterotomy was again inspected and noted to be hemostatic. Surgicel was placed over the hysterotomy. The peritoneum was closed with the muscles with 3-0 vicryl in a running fashion. The rectus muscles were inspected and noted to be hemostatic. The fascia was closed with 0 vicryl in a running fashion. The subcutaneous tissue was irrigated and noted to be hemostatic. The subcutaneous tissue was reapproximated with 2-0 plain gut in a running fashion. The skin was closed with 4-0 monocryl in a subcuticular stitch. The incision was covered with steri strips. Sterile dressing was applied. The procedure was then completed. The patient tolerated the procedure well. All sponge, lap, needle, and instrument counts were correct x 3. The patient was taken to the recovery room with in stable condition. )(Primary Surgeon: MD Jericho )(Business Transformation Consultant(s): SA Adela )(Anesthesia: spinal anesthetic )(Operative findings: Uterus normal in appearance with normal fallopian tubes and ovaries bilaterally. The placenta was completely covering the cervix. Did have to cut through the placenta to deliver baby, so did not delay cord clamping. Large expanding hematoma of the Right anterior hysterotomy site was decompressed and then suture compressed. No further expansion noted. Surgicel was placed over the hysterotomy. )(Complications: none )(Specimens removed/altered: placenta )(Implant(s): Surgicel Fluids: 1500 mL Urine output: 100 mL Disposition: PACU Counts: Sponge count: correct Instrument count: correct Needle count: correct Delivery Delivery section indication: placenta previa Priority: scheduled Antibiotic prior to incision: 1 dose )(SCDs applied activated: Yes Uterine incision: low transverse Consent: indication discussed, questions answered, pt consent to op delivery Mother's condition: mother stable Infant's condition: to NICU at 1323 RPT #:[id number] [facility] OF [facility]24-[facility] 08:56:00 [facility] ([facility] OB Admission / H P REPORT#:[id number] REPORT STATUS: Signed REPORT INITIALIZATION DATE:03/20/24 TIME: 08 PATIENT: KAVITA JEFF UNIT #: [id number] ROOM/BED: [address] : 81 AGE: 43 SEX: F ATTEND: Candice Echavarria MD ADM AUTHOR: Candice Echavarria MD REPT SERVICE DT/TIME: 03/20/24 0856 * ALL edits or amendments must be made on the electronic/computer document * OB History Nursing Documentation Review Nursing data: The data set between the solid lines has been imported from nursing documentation. Any exceptions have been noted below under Provider comments. Current data Steroids prior to arrival: ROM date: ROM time: EDC date: Gestational age (labor triage): Post hemorrhage risk score: Prior history : Para: Term: : Abortions spontaneous: Abortions induced: Living children: Ectopic: Stillbirths: Live births: deaths: Number of previous C/S: Reported maternal labs/data Blood type: Rh type: Rubella: Hepatitis B: HIV exposure test: VDRL: Group B beta strep: Rho(D) immune globulin this preg: Monitor mode - UA: Feeding preference: Provider comments on imported nursing data: [] Chief complaint: scheduled HPI: Pt is a 43 yo at 36w2d here for primary LTCS for placenta previa. She has had no episodes of bleeding. Patient's has been complicated by persistent placenta previa for which she was under comanagement with [facility] who recommends a delivery today. She also has a personal history of gastroschisis with repair, and her prior operative note from her gastric bypass surgery was significant for extensive intra-abdominal adhesive disease. She has been anemic and on iron therapy with IV iron. G1 FT , M, 8#6oz, 2012 history: : 2 Term: 1 : 0 Abortus: 0 Living children: 1 Previous : none Current : Best EDC: 04/15/24 Admission EGA (weeks) 36 Admission EGA (days) 2 EDC based on: ultrasound, 1st trimester Conditions of : anemia, placental abnormalities Labs: Blood type: O Rh: positive Rubella: immune Hepatitis B: negative HIV: negative STD: negative Syphilis: currently negative GBS: negative Genetic testing: NIPT neg Past History Additional Medical History: Gastroschisis s/p repair as child, GERD, Anemia Additional Surgical History: Gastroschisis repair, Gastric sleeve Additional Family History Noncontributory Alcohol Use Denies EtOH use Drug Use Denies recreational drugs Smoking status for patients 13 years old or older: Never Smoker Medications: Home Medications: VIT/FE FUMARATE/FA ( Multivitamin w/ Iron) 1 TAB PO DAILY Hydrocodone/Acetaminophen (HYDROcodone/APAP 5/325) 1 TAB PO Q3HPRN IBUPROFEN (MOTRIN) 600 MG PO Q6HPRN Allergies: Coded Allergies: No Known Drug Intolerances (NONE 03/19/24) Review of Systems All systems rev neg: except as marked Objective General VS: PATIENT WEIGHT: Weight (lb): Weight (oz): Weight (kg): [phone] Physical Exam Neuro: Exam: alert, oriented x3, normal speech, CNII-XII grossly intact Abdomen: gravid, soft, no abnormal tenderness, no guarding, no rebound tenderness Musculoskeletal: normal inspection Genitourinary: no bladder distention Uterine activity: Monitor: toco Frequency (description): none Membranes: Membranes: Intact Lower extremities: Edema: trace Baby A: Baby A baseline: 135 bpm Results Findings/Data: Laboratory Tests: 03/19 1423 Chemistry Sodium (136 - 145 mEq/L) 138 Potassium (3.4 - 4.5 mEQ/L) 3.7 Chloride (98 - 107 mEq/L) 107 Carbon Dioxide (22 - 31 mEq/L) 22 Anion Gap (10 - 20) 12.7 BUN (8 - 23 mg/dL) 9 Creatinine (0.55 - 1.02 mg/dL) 0.7 Glomerular Filtr Rate (>60 ml/min) 110.67 Glucose (74 - 106 mg/dL) 94 Calcium (8.3 - 10.6 mg/dL) 9.2 Total Bilirubin (0.3 - 1.2 mg/dL) 0.5 AST (< 34 units/L) 24 ALT (10 - 49 units/L) 13 Total Alk Phosphatase (46 - 116 units/L) 115 Total Protein (5.7 - 8.2 g/dL) 6.4 Albumin (3.2 - 4.8 g/dL) 4.1 Hematology WBC (6.5 - 12.3 K/mm3) 8.4 RBC (3.51 - 4.69 M/mm3) 4.14 Hgb (10.1 - 13.8 g/dL) 10.9 Hct (32.5 - 41.8 %) 34.8 MCV (84.6 - 96.6 fL) 84.1 L MCH (27.3 - 33.9 pg) 26.3 L MCHC (32.0 - 34.2 gm/dL) 31.3 L RDW (12.2 - 16.3 %) 19.9 H Plt Count (134 - 363 K/mm3) 180 MPV (9.2 - 12.7 fL) 11.8 Neut % (Auto) (57.9 - 77.3 %) 69.6 Lymph % (Auto) (14.5 - 29.7 %) 18.7 Roberts % (Auto) (3.6 - 10.2 %) 9.1 Eos % (Auto) (0.0 - 3.0 %) 1.4 Baso % (Auto) (0.1 - 0.9 %) 0.2 Neut # (Auto) (K/mm3) 5.8 Lymph # (Auto) (K/mm3) 1.6 Roberts # (Auto) (K/mm3) 0.8 Eos # (Auto) (K/mm3) 0.12 Baso # (Auto) (K/mm3) 0.0 Serology Treponema pallidum Ab (NONREACTIVE) NONREACTIVE Hep Bs Antigen (NONREACTIVE) NON REACTIVE Hepatitis C Antibody (NONREACTIVE) NONREACTIVE Hep C Ab Signal/Cutoff (<0.80) 0.12 HIV 1 2 Antibody (NONREACTIVE) NONREACTIVE Diagnosis, Assessment Plan Diagnosis, Assessment Plan Free Text A P: Pt is a 43 yo at 36w2d with complete posterior placenta previa here for primary LTCS - Pt counseled on the risks and benefits of Section delivery and desires to proceed. - Patient with a history of intra-abdominal adhesive disease due to her prior surgery. Reviewed the incresaed risks of bleeding and injury to surrounding structures including the bowel and bladder. All questions answered. 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 Rate : 060 BPM Atrial Rate : 060 BPM P-R Int : 140 ms QRS Dur : 084 ms QT Int : 418 ms P-R-T Axes : 068 056 044 degrees QTc Int : 418 ms Normal sinus rhythm Normal ECG When compared with ECG of 02-JUL-2021 09:49, No significant change was found Confirmed by MOOKIE HORTON MD ([id number]) on 10/29/2021 7:16:43 AM Referred By: Self Referred Confirmed by:MOOKIE HORTON MD at 0716 PATIENT NAME: KAVITA JEFF [facility] 2021-10-27 10:59:00 [facility] ([facility]) EMERGENCY PROVIDER REPORT REPORT#:[id number] REPORT STATUS: Signed DATE:10/27/21 TIME: 1059 PATIENT: KAVITA JEFF UNIT #: [id number] ROOM: BED: AGE: 41 SEX: F PCP PHYS: DOES_NOT KNOW SERVICE AUTHOR: Kris Shields MD * ALL edits or amendments must be made on the electronic/computer document * HPI-General Illness Free Text HPI Notes Free Text HPI Notes 41-year-old female past medical history of bariatric surgery otherwise no significant medical history comes to the ER after her second syncopal episode in the last few weeks. Both episodes happened after patient's changed from a reclined position to a standing position. Both episodes were brief. Patient denies any neurological deficits. Patient is having headache and some pain around her coccyx. Patient denies any chest pain, shortness of breath, vomiting , nausea, abdominal pain, stool changes. General Initial Greet Date/Time 10/27/21 1059 Presentation Chief Complaint syncope Review of Systems ROS Statements All systems rev neg except as marked. Past Medical History - Adult Stated Complaint SYNCOPE-FALL Allergies Coded Allergies: No Known Allergies (05/29/21) Home Medications Reported Medications Spironolactone (Aldactone) 100 MG PO DAILY Pt reports no significant: Past medical history Past Surgical History: Reports: Bariatric procedure. Family History: Reports: Hypertension. Alcohol Use Alcohol use Drug Use Denies recreational drugs Smoking status for patients 13 years old or older: Never Smoker Physical Exam Vital Signs Vital Signs First Documented: Result Date Time Pulse Ox 100 10/27 1059 B/P 134/82 10/27 1059 B/P Mean 99 10/27 1059 O2 Delivery Room air 10/27 1059 Temp 36.6 10/27 1059 Pulse 73 10/27 1059 Resp 16 10/27 1059 Last Documented: Result Date Time Pulse Ox 100 10/27 1059 B/P 134/82 10/27 1059 B/P Mean 99 10/27 1059 O2 Delivery Room air 10/27 1059 Temp 36.6 10/27 1059 Pulse 73 10/27 1059 Resp 16 10/27 1059 Review of Vital Signs Reviewed Free Text PE Notes Free Text PE Notes General: Well-appearing, well-nourished no apparent distress Head: Normocephalic atraumatic Eyes: EOMI, PERRLA, normal conjunctiva, no scleral icterus, HEENT: Airway patent, mucous membranes moist, pharynx normal. Respiratory/chest: Breath sounds normal, breath sounds equal bilaterally, no respiratory distress, no rales, no rhonchi, no wheezing Cardiovascular: Heart rate normal, regular rhythm, heart sounds normal, peripheral circulation normal Abdomen/GI: Soft, no guarding, no rebound, no distention, no hernia, no palpable mass, no pulsatile mass, nontender, MS back: Normal inspection, non-tender, no costovertebral angle tenderness. Skin: Color normal, warm, dry, normal turgor. Extremities: No edema, full range of motion, neurovascularly intact. Neuro: Alert and oriented x3, cranial nerves II through XII grossly intact, no motor deficit, no sensory deficit, no cerebellar signs, normal gait. Psych: Normal affect, normal mood, normal concentration, normal insight, Interpretation Diagnostics Lab Results Interpretation Results Laboratory Tests 10/27/21 1111: [Embedded Image Not Available] Laboratory Tests: 10/27 10/27 1111 1111 Chemistry Sodium (136 - 145 mmol/L) 139 Potassium (3.5 - 5.1 mmol/L) 4.0 Chloride (98 - 107 mmol/L) 106 Carbon Dioxide (20 - 31 mmol/L) 25 BUN (9 - 23 mg/dL) 8 L Creatinine (0.55 - 1.02 mg/dL) 0.80 Glomerular Filtr Rate (>60 mL/min) >=60 max estimate Glucose (74 - 106 mg/dL) 80 Calcium (8.7 - 10.4 mg/dL) 9.2 Serum HCG, Qual (NEGATIVE) NEGATIVE Hematology WBC (4.8 - 10.8 x10 3/uL) 6.9 RBC (4.20 - 5.40 x10 6/uL) 4.94 Hgb (12.0 - 16.0 g/dL) 14.8 Hct (37.0 - 47.0 %) 43.6 MCV (81.0 - 99.0 fL) 88.3 MCH (27 - 31 pg) 30.0 MCHC (33 - 36.5 G/DL) 33.9 RDW (12.9 - 16.9 %) 13.4 Plt Count (150 - 440 x10 3/uL) 267 MPV (8.9 - 12.4 fL) 11.8 Neut % (Auto) (42.2 - 75.2 %) 60.8 Lymph % (Auto) (20.5 - 51.1 %) 27.6 Roberts % (Auto) (1.7 - 9.3 %) 9.0 Eos % (Auto) (0.0 - 7.0 %) 1.9 Baso % (Auto) (0 - 2.5 %) 0.6 Neut # (Auto) (1.80 - 7.70 x10 3/uL) 4.20 Lymph # (Auto) (1.00 - 4.80 x10 3/uL) 1.91 Roberts # (Auto) (0.00 - 0.80 x10 3/uL) 0.62 Eos # (Auto) (0.00 - 0.45 x10 3/uL) 0.13 Baso # (Auto) (0.0 - 0.20 x10 3/uL) 0.04 10/27 1111 Chemistry Troponin I High Sens (27.36 - 66.23 pg/mL) < 2.5 L Recent Impressions: RADIOLOGY - XR CHEST 1 V 10/27 1130 Report Impression - Status: SIGNED Entered: 10/27/2021 1216 IMPRESSION: No active disease in the chest. Impression By: Dami DUBON M.D. RADIOLOGY - XR SACRUM/COCCYX 2 + V 10/27 1130 Report Impression - Status: SIGNED Entered: 10/27/2021 1216 IMPRESSION: No acute osseous abnormality. Impression By: Dami DUBON M.D. CAT SCAN - CT HEAD/BRAIN W/O CONT 10/27 1130 Report Impression - Status: SIGNED Entered: 10/27/2021 1147 IMPRESSION: No acute intracranial abnormality. No acute hemorrhage, mass lesion or infarct. Impression By: Dami DUBON M.D. ECG #1 Interpretation Time 1233 NL ECG Interpretation Normal rate, Normal sinus rhythm, No acute ischemic changes, No STEMI Re-Evaluation MDM Free Text MDM Notes Free Text MDM Notes Patient will follow up with primary care doctor in 1 to 2 days and return immediately for any new or worsened symptoms. ED Course Medication(s) Ordered Medication(s) Ordered: Central Nervous System Agents Sig/James Start time Last Medication Dose Route Stop Time Status Admin Ibuprofen 800 MG X1ED STA 10/27 1234 DC PO 10/27 1235 Electrolytic, Caloric, And Tiffany Sig/James Start time Last Medication Dose Route Stop Time Status Admin Sodium Chloride 1,000 ML X1ED STA 10/27 1104 DC /14 IV 10/27 1203 1123 Patient Discharge Departure Vital Signs/Condition Vital Signs First Documented: Result Date Time Pulse Ox 100 10/27 1059 B/P 134/82 10/27 1059 B/P Mean 99 10/27 1059 O2 Delivery Room air 10/27 1059 Temp 36.6 10/27 1059 Pulse 73 10/27 1059 Resp 16 10/27 1059 Last Documented: Result Date Time Pulse Ox 100 10/27 1059 B/P 134/82 10/27 1059 B/P Mean 99 / 1059 O2 Delivery Room air 10/27 1059 Temp 36.6 10/27 1059 Pulse 73 10/27 1059 Resp 16 10/27 1059 All vital signs available at the time of this entry have been reviewed. Clinical Impression Clinical Impression Primary Impression: Syncope Disposition Decision Discharge )( Discharged to Home Yes )( Time 1235 )( Date 10/27/21 Discharge/Care Plan Patient Instructions ED Coccyx or Sacrum Contusion, ED Vertigo, Unspecified Additional Instructions Return immediately for any new or worsened symptoms. Referrals Provider Referral: Marti Gordillo MD Address: [address] [place] [address] at 1316 RPT #:[id number] END OF REPORT [facility] 2021-07-03 08:38:00 [facility] ([facility]) Med Order Sheet REPORT #: [id number] REPORT STATUS: Signed DATE: 07/03/21 TIME: 837 PATIENT: KAVITA JEFF UNIT #: [id number] ROOM #: [facility] BED: 1 : 81 AGE: 41 SEX: F ATTEND: Drew Wade MD ADM AUTHOR: Drew Wade MD ATTENTION *EDITS and/or ADDENDA must be made in Patient Keeper for this note. * * Edits and ammendments created in [facility] are not visible * * in Patient Keeper or the legal medical record ([facility]). * Discharge Medication Reconciliation DISCHARGE MEDICATION LIST spironolactone tablet Dose: 100 MG PO DAILY for acne/roscea STOPPED HOME MEDICATIONS Dc'd: ALLERGY EYE DROPS 1 * Each Eye BID for allergyDc'd: Altavera (28) 0.15 mg-0.03 mg tablet (levonorgestrel-ethinyl estrad) 1 TAB PO DAILYDc'd: Fluticasone Prop Nasal [place] (Flonase Nasal [place]) 1 SPRAY Nasal BID (One spray in each nostril.)Dc'd: loratadine tablet 10 MG PO BEDTIMEDc'd: RABEprazole Tab (NF) (Aciphex Tab (NF)) 20 MG PO DAILY STOPPED HOSPITAL MEDICATIONS Dc'd: Enoxaparin 30 mg/0.3 ml Inj (Lovenox 30 mg/0.3 ml Inj) 30MG SubQ DAILYDc'd: KCL 20mEq + NS 1000ML (NS + KCL 20mEq 1000ML) 20MEQ 125 MLS/HR IV Dc'd: Ketorolac Inj (Toradol Inj) 30MG IV Q6HRDc'd: morphine Inj 2MG IV Q2H PRN pain scale 4-6Dc'd: morphine Inj 4MG IV Q2H PRN pain scale 1-3Dc'd: Ondansetron Inj (Zofran Inj) 4MG IV Q8H PRN nausea and vomitingDc'd: Promethazine Inj (Phenergan Inj) 12.5MG 101 MLS/HR IV Q6H PRN nausea and vomitingin Sodium Chloride 0.9% (NS) 50ML at 0838 ATTENTION *EDITS and/or ADDENDA must be made in Patient Keeper for this note. * * Edits and ammendments created in [facility] are not visible * * in Patient Keeper or the legal medical record ([facility]). * RPT #: [id number] END OF REPORT [facility] 2021-07-03 08:36:00 [facility] General Surg. D/C Summary REPORT #: [id number] REPORT STATUS: Signed DATE: 07/03/21 TIME: 835 PATIENT: KAVITA JEFF UNIT #: [id number] ROOM #: P.0577 BED: 1 : 81 AGE: 41 SEX: F ATTEND: Drew Wade MD ADM AUTHOR: Drew Wade MD ATTENTION *EDITS and/or ADDENDA must be made in Patient Keeper for this note. * * Edits and ammendments created in [facility] are not visible * * in Patient Keeper or the legal medical record ([facility]). * -- HOSPITAL COURSE -- HOSPITAL COURSE: POD 1 Discharge Note Discharge date:07/03/2021 Procedure(s): R/LSG, R/LRRHH Current status: Patient is awake and alert. Ambulating in the hallway with assistance. Tolerating small volumes of bariatric clear liquids. Minimal abdominal pain. Denies persistent vomiting, fevers, chills, dizziness or shortness of breath. Physical examination: general - non-ill, non-toxic, comfortable, good color VS normal head neck - pink [place], moist mucus membranes chest - CTA, no increased work of breathing cvs - nsr, no murmur abd - soft, non-distended, minimal incisional pain, NO peritoneal signs wounds - dressings dry and intact UOP: 525 Assessment: Expected post-operative course Plan: Discharge home today - instructions given verbally to the patient Crush al essential medications with water Bariatric clear liquid diet Ambulate 3 times a day Call IMMEDIATELY for worsening abdominal pain, chest pain, shortness of breath, persistent vomiting, left shoulder pain, vomiting blood, passing blood per rectum, fever, dizziness, inability to drink liquids, or any other concerning new symptom -- DISCHARGE MEDICATIONS -- ALLERGIES: No Known Allergies (UNKNOWN - Allergy) [EXTERNAL] No Known Drug Intolerances (UNKNOWN - External allergies are for display only, consider adding to medical record for drug interaction check) -- DISCHARGE INSTRUCTIONS -- ADDTIONAL DISCHARGE INSTRUCTIONS: Emergency Instructions: The patient was instructed to present to the nearest Emergency Department or call 911 should their symptoms return or worsen.; -- OBJECTIVE -- VITALS (07/02 08:36 - 07/03 08:36): Temperature C: 36.9 (36.4 - 37.0) Temperature source: Oral Pulse Rate 87 (64 - 93) Respiratory rate: 17 (16 - 18) BP: 124/77 (108/69 - 144/95) I/Os (07/02 07:00 - 07/03 07:00): Net 1,935.00 Intake 1,935.00 -- DATA -- LABS UR HCG QL (07/02/21 08:39) UR HCG QUAL NEGATIVE CBC W/AUTO DIFF (07/02/21 08:39) WHITE BLOOD CELL 6.4 RED BLOOD CELL 4.94 HEMOGLOBIN 14.1 HEMATOCRIT 42.6 MEAN CELL VOLUME 86.2 MEAN CELL HGB 28.5 MEAN CELL HGB CONCENTRATION 33.1 RED CELL DISTRIBUTION WIDTH 13.4 PLATELET COUNT 283 MEAN PLATELET VOLUME 11.2 NEUTROPHIL % 60.9 LYMPHOCYTE % 25.8 MONOCYTE % 9.9 H EOSINOPHIL % 2.7 BASOPHIL % 0.5 NEUTROPHIL # 3.87 LYMPHOCYTE # 1.64 MONOCYTE # 0.63 EOSINOPHIL # 0.17 BASOPHIL # 0.03 Signed in PatientKeeper by Drew Wade MD on 07/03/21 at 08:37 at 0837 ATTENTION *EDITS and/or ADDENDA must be made in Patient Keeper for this note. * * Edits and ammendments created in [facility] are not visible * * in Patient Keeper or the legal medical record ([facility]). * [facility] #: [id number] END OF REPORT [facility] 2021-07-02 15:00:00 [facility] ([facility]) Operative Report REPORT #: [id number] REPORT STATUS: Signed DATE: 07/02/21 TIME: 1500 PATIENT: KAVITA JEFF UNIT #: [id number] ROOM #: [facility] BED: 06 : 81 AGE: 41 SEX: F ATTEND: Drew Wade MD ADM AUTHOR: Drew Wade MD ATTENTION *EDITS and/or ADDENDA must be made in Patient Keeper for this note. * * Edits and ammendments created in [facility] are not visible * * in Patient Keeper or the legal medical record ([facility]). * -- OPERATION -- SURGERY START DATE/TIME: 2021-07-02 15:01 PRE-OPERATIVE DIAGNOSIS: morbid obesity GERD / heartburn hiatal hernia family history of vasc disease previous gastroschisis repair (abdominal wall deformity) POST-OPERATIVE DIAGNOSIS: same, intraabdominal adhesions, including dense adherence of distal stomach to anterior abdominal wall, gastrotomy NAME OF PROCEDURE: Robotic/Laparoscopic Sleeve Gastrectomy and Robotic/Laparoscopic Reduction and Repair of Hiatal Hernia, Laparoscopic lysis of adhesions SURGEON: Drew Wade MD PHLEBOTOMIST PRN(S): Tristan GREGORIO ANESTHESIA: General ESTIMATED BLOOD LOSS: 20 ml's FINDINGS: as above SPECIMEN(S) REMOVED AND/OR ALTERED: lateral stomach COMPLICATION(S): gastrotomy after lysis of adhesions -- DESCRIPTION -- DESCRIPTION OF TECHNIQUE/PROCEDURE: Date:07/02/2021 Pathology specimen: none Pre-op DVT prophylaxis: SCDs and lovenox Pre-op Antibiotics: Cefazolin 2gm IV Complications: gastrotomy post lysis of adhesions Procedure: The patient was prepped and draped in the supine position with the abdomen exposed. An area in the LUQ adjacent to the umbilicus was infiltrated with a mixture of exparel and 0.25% bupivicaine. A small incision was made, and a blunt trochar with a camera inserted was passed into the peritoneal space under direct vision. The abdomen was insufflated with CO2, and there were no hemodymamic or oxygenation changes. Inspection revealed a wall of adhesions superior to the trochar placement. A second 8 mm trochar was placed to the right of midline. Using an enseal device adhesions were lysed first in the midline, then laterally. The distal stomach was found to be densely adherent to the anterior abdominal wall. This was mobilized, but a small gastrotomy was created at the most densly adherent area. There was no visible leak from this defect, and the OGT was seen nearby keeping the stomach decompressed. The left lobe of the liver was noted to be adherent to the stomach and these adhesions were divided. Areas in the lateral and medial right abdomen, and the lateral left abdomen were infiltrated with the same local anesthetic (subdermal and pre-peritoneal areas). An 8 mm trochar was placed in the right lateral position, the 8mm trochar in the right medial position was replaced with a 12 mm trochar. An 8 mm trochar was placed in the left lateral abdomen, and the original trochar was replaced with an 8 mm trochar. The [employer] surgical robot was brought over the field and docked. The camera was targeted. A hiatal hernia was observed at the hiatus. The surgeon broke scrub and went to the console .The left lobe of the liver was elevated and held in place with a self-retaining retractor (trio retractor). A dissection was started along the distal greater curvature, the omentum from the stomach, until the lesser sac was exposed. The dissection was continue distally to within a few centimeters of the pylorus. The dissection was then carried up along the greater curve until the left mika was exposed. The pars flacidum was divided and dissection exposed the right crura. It was from the esophagus and proximal stomach. A dissection was then made both anteriorly and posteriorly completing a 360 dissection. This allowed the EG junction to be reduced into the abdomen without tension. Some posterior attachments were also divided, completely mobilizing the lateral stomach. A 38 fr bougie was then placed into the stomach, near the pylorus, by the Cement Tile [employer]. It was drawn back slightly against the lesser curve. A 60 mm stapler was exchanged. The first staple firing was a green load fired from the distal most point of the greater curve dissection towards the incisura, allowing for the presence of the bougie. Subsequent staple loads (1 green and mult blue) were applied working superiorly, until the stomach was transected near the angle of HIS. The remnant stomach was moved to the left lateral abdomen. Inspection of the staple line showed the dayna to be well formed, oriented, with no significant gapping or bleeding. The EG junction was then retracted laterally and a posterior crural repair was done with interrupted 0 ethibond sutures. The bougie was removed and replaced by an OG tube. Sixty ccs of methylene dyed blue NS was instilled into the distal sleeve with good distention. Careful inspection did not reveal any leak. The tube was suctioned and removed. The trio retractor was removed from the peritoneal space. The surgeon re-scrubbed.. Inspection of the remnant stomach did not suggest leakage from the previous defect. The 12 mm trochar site was widened with a large clamp, and the remnant stomach was removed from the abdomen. The 12 mm trochar site were then closed at the level of the fascia with a suture passer and 0 vicryl suture. All sites were then closed at the skin with a running 4-0 monocryl suture. The wounds were dressed with steristrips and dry gauze. The patient was then taken to the recovery room in stable condition. Signed in PatientKeeper by Drew Wade MD on 07/02/21 at 15:13 at 1513 ATTENTION *EDITS and/or ADDENDA must be made in Patient Keeper for this note. * * Edits and ammendments created in [facility] are not visible * * in Patient Keeper or the legal medical record ([facility]). * [facility] #: [id number] END OF REPORT [facility] 2021-07-02 09:49:00 [id number] [address] [place] [address] PATIENT NAME: KAVITA JEFF ADMIT DATE: 07/02/21 ACCOUNT NO: [id number] ROOM NO: [facility] AGE: 41 REPORT TYPE: eELECTROCARDIOGRAM SEX: F ADMITTING PHYSICIAN: Drew Wade MD ATTENDING PHYSICIAN: Drew Wade MD Order: [id number] Test Reason : PREOP Test Date/Time Stamp: TueJul 02 2021 09:49:37 Blood Pressure : / mmHG Vent. Rate : 062 BPM Atrial Rate : 062 BPM P-R Int : 142 ms QRS Dur : 092 ms QT Int : 398 ms P-R-T Axes : 075 080 059 degrees QTc Int : 403 ms Normal sinus rhythm with sinus arrhythmia Normal ECG Confirmed by DENISE WILDE, MARTI Boswell ([id number]) on 07/03/2021 8:20:30 PM Referred By: Drew Wade Confirmed by:MARTI GORDILLO MD at 2019 PATIENT NAME: KAVITA JEFF [facility]
[2024-07-14 14:55] LABS: Absolute Eosinophils 0.2 K/uL (0-0.5); Absolute Lymphocytes (CBC) 1.6 K/uL (0.7-4.9); Absolute Monocytes 0.6 K/uL (0.1-1.3); Absolute Neutrophil 3.1 K/uL (1.8-8.0); Basophils % 0.6 % (0-1.3); Eosinophils % 3.3 % (0-4.4); Hematocrit 37.9 % (36.0-45.0); Hemoglobin 12.6 g/dL (12.0-15.0); Lymphocytes % 29.3 % (15.3-44.8); MCH 26.7 pg (27.0-35.0); MCHC 33.2 g/dL (32.0-36.0); MCV 80.3 fL (80-100); MPV 9.5 fL (7.6-11.3); Monocytes % 10.8 % (3.3-12.3); Nucleated Red Blood Cells % 0.1 % (0-0); Platelets 257 thou/uL (152-406); RBC Red Blood Cell Count 4.72 M/uL (3.86-4.86); Red Cell Distribution Width 16.8 % (12.1-15.2)
[2024-07-14 15:00] LABS: PT Prothrombin Time 12.1 SECONDS (10.0-13.0); PTT, Activated Partial Thromb 30.5 SECONDS (24.3-36.9); Protime INR 1.06
[2024-07-14 15:15] LABS: Albumin 3.8 g/dL (3.4-5.0); Albumin/Globulin Ratio 1.2 (1.1-1.8); Anion Gap 7.6 mEq/L (5.0-15.0); Bilirubin Total 0.4 mg/dL (0.2-1.0); Ferritin 8.4 ng/mL (8-252); Globulin 3.3 g/dL (2.3-3.5); Potassium 3.6 mEq/L (3.5-5.1); Protein, Total 7.1 g/dL (6.4-8.2)
[2024-07-14] MEDS ORDERED: NA CHLORIDE 0.9% 1,000 ML ONE (15:15)
--- NOTE | 2024-07-14 17:28 | EDPHYS ---
Physician Documentation [facility] Name: Kavita Jeff Age: 44 yrs Sex: Female : 1980 Arrival Date: 07/14/2024 Time: 14:08 Bed 6 Private MD: ED Physician Zachray Evans HPI: 07/14 18:14 This 44 yrs old Female presents to ER via Ambulatory with complaints of dr5 Dizziness. 18:14 The patient presents with dizziness. Onset: The symptoms/episode began/occurred dr5 yesterday. Patient is a 44-year-old female with history of iron deficiency anemia coming in with dizziness and lightheadedness that started yesterday and worsens when she stands up and or ambulates. Patient has history of gastric sleeve and does not take iron due to absorption. 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 - Social history:: Smoking status: Patient denies any tobacco usage or history of. ROS: 18:14 Constitutional: as per hpi dr5 Exam: 18:14 Constitutional: This is a well developed, well nourished patient who is awake, alert, dr5 and in no acute distress. Head/Face: Normocephalic, atraumatic. Eyes: Pupils equal round and reactive to light, extra-ocular motions intact. Lids and lashes normal. Conjunctiva and sclera are non-icteric, pale, and not injected. Cornea within normal limits. Periorbital areas with no swelling, redness, or edema. ENT: Nares patent. No nasal discharge, no septal abnormalities noted. Tympanic membranes are normal and external auditory canals are clear. Oropharynx with no redness, swelling, or masses, exudates, or evidence of obstruction, uvula midline. Mucous membranes moist. Neck: Trachea midline, no thyromegaly or masses palpated, and no cervical lymphadenopathy. Supple, full range of motion without nuchal rigidity, or vertebral point tenderness. No Meningismus. Chest/axilla: Normal chest wall appearance and motion. Nontender with no deformity. No lesions are appreciated. Cardiovascular: Regular rate and rhythm with a normal S1 and S2. Normal PMI, no JVD. No pulse deficits. Respiratory: Lungs have equal breath sounds bilaterally, clear to auscultation. No rales, rhonchi or wheezes noted. No increased work of breathing, no retractions or nasal flaring. Back: No spinal tenderness. No costovertebral tenderness. Full range of motion. Skin: Warm, dry with normal turgor. Normal color with no rashes, no lesions, and no evidence of cellulitis. MS/ Extremity: Pulses equal, no cyanosis. Neurovascular intact. Full, normal range of motion. Vital Signs: 14:26 BP 123 / 86; Pulse 86; Resp 15; Temp 97.7(O); Pulse Ox 100% ; Weight 69.4 kg; Height 5 ss ft. 6 in. ; Pain 0/10; 17:42 BP 111 / 55; Pulse 67; Resp 16; Pulse Ox 97% on R/A; iw 14:26 Body Mass Index 24.69 (69.40 kg, 167.64 cm) ss 14:26 Pain Scale: Adult ss MDM: 14:15 Medical Screening Exam initiated dr5 18:14 Differential diagnosis: vertigo, Iron Deficiency Anemia, Anemia. Data reviewed: vital dr5 signs, nurses notes. I considered the following discharge prescriptions or medication management in the emergency department Medications were administered in the Emergency Department. See MAR. Care significantly affected by the following Social Determinants of Health: Poor access to healthcare and/or lack of insurance, Poor access to transportation, Problems related to employment. Counseling: I had a detailed discussion with the patient and/or guardian regarding the historical points, exam findings, and any diagnostic results supporting the discharge/admit diagnosis, the presence of at least one elevated blood pressure reading (>120/80) during this emergency department visit, lab results, the need for outpatient follow up, for definitive care, a family practitioner, to return to the emergency department if symptoms worsen or persist or if there are any questions or concerns that arise at home. ED course: Patient's hemoglobin was normal but patient had low iron. Gave iron infusion and patient will follow-up primary care doctor this week. Patient reports that all symptoms have resolved and he still feeling much better. Patient will return to ER for worsening symptoms or change. Patient denies dizziness and lightheadedness on discharge. 07/14 14:29 Order name: CBC with Diff; Complete Time: 14:57 dr5 07/14 14:29 Order name: Protime (+inr); Complete Time: 15:05 dr5 07/14 14:29 Order name: Ptt, Activated; Complete Time: 15:05 dr5 07/14 14:29 Order name: CMP; Complete Time: 15:16 dr5 07/14 14:29 Order name: Type And Screen; Complete Time: 15:54 dr5 07/14 14:29 Order name: TIBC; Complete Time: 15:16 dr5 07/14 14:29 Order name: Ferritin; Complete Time: 15:16 dr5 07/14 15:45 Order name: ABO/RH no charge; Complete Time: 15:54 EDMS 07/14 14:29 Order name: EKG; Complete Time: 14:29 dr5 07/14 14:29 Order name: Cardiac monitoring; Complete Time: 15:00 dr5 07/14 14:29 Order name: EKG - Nurse/Tech; Complete Time: 15:00 [facility] 07/14 14:29 Order name: IV Saline Lock; Complete Time: 14:52 [facility] 07/14 14:29 Order name: Labs collected and sent; Complete Time: 14:52 dr5 07/14 14:29 Order name: NPO; Complete Time: 14:52 dr5 07/14 14:29 Order name: O2 Per Protocol; Complete Time: 14:52 [facility] 07/14 14:29 Order name: O2 Sat Monitoring; Complete Time: 14:52 dr5 EC:54 Rate is 81 beats/min. Rhythm is regular. QRS [place] is Normal. [place] interval is normal at dr5 140 msec. QRS interval is normal at 96 msec. QT interval is normal at 366 msec. Administered Medications: 15:16 Drug: NS 0.9% IV 1000 ml IV at 1000 ml once; to be given as a bolus over 60 minutes aa5 Route: IV; Rate: 1000 ml; Site: right antecubital; 16:30 Follow up: IV Status: Completed infusion iw 15:23 Not Given [facility] iron sucrose 300 mg IV at per protocol once; administer over 2 hrs Disposition Summary: 07/14/24 17:27 Discharge Ordered Notes: Location: Home dr5 Condition: Stable dr5 Diagnosis - Iron deficiency anemia, unspecified dr5 Followup: dr5 - With: Emergency Department - When: As needed - Reason: Worsening of condition Followup: dr5 - With: Private Physician - When: 1 - 2 days - Reason: Recheck today's complaints, Continuance of care, Re-evaluation by your physician Discharge Instructions: - Discharge Summary Sheet dr5 - Iron Deficiency Anemia, Adult dr5 Forms: - Medication Reconciliation Form dr5 - Patient Portal Instructions dr5 - Leadership Thank You Letter dr5 Signatures: Dispatcher [employer] Veronica Grimes RN RN aa5 Lola Mackenzie RN RN ss Justin Mc, JOSELINE-C INDUCTOR TESTER-Cdr5 Yulia Carolina RN iw
--- NOTE | 2024-07-14 17:28 | ER ---
Nurse's Notes [facility] Name: Kavita Jeff Age: 44 yrs Sex: Female : 1980 Arrival Date: 07/14/2024 Time: 14:08 Bed 6 Private MD: Diagnosis: Iron deficiency anemia, unspecified Presentation: 07/14 14:26 Chief complaint: Patient states: lightheaded and near syncope that began yesterday, ss worse today. Hx of iron deficiency anemia. Coronavirus screen: Client denies travel out of the [place] in the last 14 days. Ebola Screen: Patient denies exposure to infectious person. Patient denies travel to an Ebola-affected area in the 21 days before illness onset. Initial Sepsis Screen: Does the patient meet any 2 criteria? No. Patient's initial sepsis screen is negative. Does the patient have a suspected source of infection? No. Patient's initial sepsis screen is negative. Risk Assessment: Do you want to hurt yourself or someone else? Patient reports no desire to harm self or others. Onset of symptoms was July 13, 2024. 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 - Social history:: Smoking status: Patient denies any tobacco usage or history of. Screenin:48 [facility] ED Fall Risk Assessment (Adult) History of falling in the last 3 months, iw including since admission Yes- physiologic fall (2 pts) Confusion or Disorientation Intoxicated or Sedated No (0 pts) Impaired Gait No (0 pts) Mobility Assist Device Used No (0 pt) Altered Elimination No (0 pt) Score/Fall Risk Level 0 - 2 = Low Risk Oriented to surroundings, Maintained a safe environment. Abuse screen: Denies injuries from another. Tuberculosis screening: No symptoms or risk factors identified. 14:48 Nutritional screening: No deficits noted. iw Assessment: 14:47 General: Appears in no apparent distress. Behavior is calm, cooperative. Pain: Denies iw pain. Neuro: Kate Agitation-Sedation Scale (RASS): Level of Consciousness is awake, alert, obeys commands, Oriented to person, place, time, situation, Moves all extremities. Full function. Cardiovascular: Reports fatigue, lightheadedness, Patient's skin is warm and dry. Respiratory: Respiratory effort is even, unlabored, Respiratory pattern is regular, symmetrical. GI: Abdomen is non-distended. Derm: Skin is intact, is thin, Skin is pale. Musculoskeletal: Range of motion: intact in all extremities. 16:04 Reassessment: iron infusion started to LAC. iw 16:24 Reassessment: Patient appears in no apparent distress at this time. Patient and/or iw family updated on plan of care and expected duration. Pain level reassessed. Patient is alert, oriented x 3, equal unlabored respirations, skin warm/dry/pink. Vital Signs: 14:26 BP 123 / 86; Pulse 86; Resp 15; Temp 97.7(O); Pulse Ox 100% ; Weight 69.4 kg; Height 5 ss ft. 6 in. ; Pain 0/10; 17:42 BP 111 / 55; Pulse 67; Resp 16; Pulse Ox 97% on R/A; iw 14:26 Body Mass Index 24.69 (69.40 kg, 167.64 cm) ss 14:26 Pain Scale: Adult ss ED Course: 14:10 Patient arrived in ED. ts1 14:11 Justin Mc FNP-C is PHCP. dr5 14:11 Zachary Evans MD is Attending Physician. dr5 14:14 Yulia Carolina, MARIELLE is Primary Nurse. iw 14:31 Triage completed. ss 14:31 Arm band placed on right wrist. ss 14:32 Client placed on continuous cardiac and pulse oximetry monitoring. NIBP monitoring iw applied. monitoring manager on. 16:00 Inserted saline lock: 22 gauge in left antecubital area, using aseptic technique. iw 16:24 Patient has correct armband on for positive identification. iw 17:42 No provider procedures requiring assistance completed. IV discontinued, intact, iw bleeding controlled, No redness/swelling at site. Pressure dressing applied. Administered Medications: 15:16 Drug: NS 0.9% IV 1000 ml IV at 1000 ml once; to be given as a bolus over 60 minutes aa5 Route: IV; Rate: 1000 ml; Site: right antecubital; 16:30 Follow up: IV Status: Completed infusion iw 15:23 Not Given (Other Intervention Used; Placed in [facility]): iron sucrose 300 mg IV at per protocol once; administer over 2 hrs Medication: 14:49 VIS not applicable for this client. iw Outcome: 17:27 Discharge ordered by . dr5 17:45 Discharged to home ambulatory, iw 17:45 Condition: good 17:45 Discharge instructions given to patient, Instructed on discharge instructions, follow up and referral plans. Demonstrated understanding of instructions, follow-up care, 17:46 Patient left the ED. iw Signatures: Yulia Carolina, RN RN iw Veronica Reid RN RN aa5 Lola Mackenzie RN RN ss Lindsey Thapa, SEEMA PAS ts1 Justin Mc, MAT TESTER-C MAT TESTER-Cdr5
[2024-07-14 17:51] VITALS: TEMP 97.7
[2024-07-14 17:52] VITALS: BP 111/55; O2SAT 97
[2024-07-15] MEDS ORDERED: SOD FERRIC GLUC COMPLX/SUCROSE 125 MG in NA CHLORIDE 0.9% 100 ML IV ONE (15:30)
== END 2024-07-14 17:46 | disposition home or self-care (01) ==
LOC: ER 14:08
DX: D50.9 Iron deficiency anemia, unspecified (principal); Z98.84 Bariatric surgery status
CPT/HCPCS: 85025; 36415; 86900; 86850; 85610; 86901; 85730; 82728; 83540; 80053; 84466; J7030